=== PATIENT | male | born 1965 | race Caucasian/White ===

== ENCOUNTER 2016-10-24 09:38 | Inpatient (IN) | payer OTHER ==
[~2016-10-24] VITALS: Ht 172.7 cm; Wt 94.4 kg
--- NOTE | 2016-10-24 12:51 | DIAGNOSTIC IMAGING REPORT ---
PROCEDURE: XR ABD SERIES 2V ABD/1V CHEST INDICATION: VOMITING , initial encounter TECHNIQUE: AP supine and upright views of the abdomen with single view of the chest. COMPARISON: None. FINDINGS: CHEST: Lungs are clear. Normal cardiovascular structures. Bony thorax is unremarkable. Lower cervical spine surgical fusion. ABDOMEN: Paraspinal and right lower quadrant surgical clips. Decrease bowel gas. No soft-tissue masses or unusual calcifications. No evidence of free air. Right iliac exostosis. IMPRESSION: 1. Negative acute abdominal series.
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
--- NOTE | 2016-10-24 13:08 | ED NURSING NOTES ---
Clinical Report - Nurses [facility] [address] [place] [address] 10/24/2016 9:38 Patient: EUSEBIO SETHI TRIAGE Triage time 09:48 Oct 24 2016. Acuity: LEVEL 3. Chief Complaint: VOMITING. Alert. No acute distress. --09:53 Yessenia Dunn R.N. 09:48 10/24/16. BP: 188/98. HR: 99. RR: 22. O2 saturation: 100%. Temp: 97.6 F. Pain level now 06/15. --09:53 Yessenia Dunn R.N. Weight: 95.2 kg stated. Height/Length: 70 inches Per Patient. BMI: 30.1. --09:47 Yessenia Dunn R.N. Medications Nortriptyline HCl Oral 50 mg, at bedtime. Ondansetron HCl Oral, as needed. PriLOSEC Oral. Sertraline HCl Oral 75 mg, at bedtime. --09:52 Yessenia Dunn R.N. Medication/allergy information source: the patient. --09:53 Yessenia Dunn R.N. Allergies Penicillins. --09:52 Yessenia Dunn R.N. History Arrived by private vehicle. Historian: patient. Primary physician (Dr. Aquino, [facility], [place]). ( Vomiting off/on for 2 days, states he is dehydrated.). Onset. (2 days ago). He has had nausea, vomiting and abdominal pain. Last oral intake by patient was lunch yesterday. 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 PAST MEDICAL HX: Immunizations: up-to-date. Has not received seasonal influenza immunization. SOCIAL HX: Former smoker. History of drug use: marijuana. No alcohol use. FALL RISK ASSESSMENT: Fall risk assessment completed. No fall risk identified. NUTRITIONAL RISK ASSESSMENT: The nutritional risk assessment revealed no deficiencies. FUNCTIONAL ASSESSMENT: Functional assessment: no impairments noted. LEARNING NEEDS ASSESSMENT: The learning needs assessment revealed no barriers. SKIN INTEGRITY ASSESSMENT: Skin integrity risk assessment completed. No skin integrity risk identified. --09:53 Yessenia Dunn R.N. PROBLEMS: Substance Abuse. Leukocytosis. Dehydration. Abdominal Pain. Bowel Perforation. Vomiting. Hypertension. --09:52 Yessenia Dunn R.N. ADDITIONAL SURGERIES: Appendectomy. Bowel Surgery. Colostomy. Hand. --09:52 Yessenia Dunn R.N. Interventions ID band on patient. To room. --09:53 Yessenia Dunn R.N. NURSING PROGRESS NOTES ( Pt provided a letter from his [facility] [place] PCP office for pain management.). --09:54 Yessenia Dunn R.N. 10:10/24/2016 Site #1 started via IV in the right antecubital space with an 20g angiocath; one attempt. Blood drawn: rainbow set. Labeled in the presence of the patient and sent to the lab. Saline lock flushed with 10 mL saline. --10:07 Yessenia Dunn R.N. 10:10/24/2016 Started bag #1 1000 mL IV Fluids IV NS (Saline); at 1000 mL/hr over 1 hour(s) via site #1. Completed per protocol. --10:08 Yessenia Dunn R.N. 10:18 10/24/2016 Zofran (Ondansetron HCl) IVP 4 mg given over 2 minute(s) via site #1. IV patency established. IV site checked: no pain, redness, or swelling. IV flushed thoroughly pre- and post-medication administration. --10:18 Yessenia Dunn R.N. 10:10/24/2016 Haloperidol IV 3 mg (NOW) was refused by patient because of preference for a different route and "It doesn't work for me" ( aware.). Yessenia Dunn --10:20 Yessenia Dunn R.N. Care transferred and report given (NICOLA Cummings). --10:21 Yessenia Dunn R.N. 10:10/24/2016 Benadryl (DiphenhydrAMINE HCl) IVP 25 mg given over 1 minute(s) via site #1. Sedative warning given to the patient. IV patency established. IV site checked: no pain, redness, or swelling. IV flushed thoroughly pre- and post-medication administration. IVP given by RN. --10:29 Paris Briseno R.N. 10:24 10/24/2016 PROTONIX (Pantoprazole Sodium) IVP 40 mg given over 2 minute(s) via site #1. Allergies verified and confirmed 5 rights. IV patency established. IV site checked: no pain, redness, or swelling. IV flushed thoroughly pre- and post-medication administration. IVP given by RN. --10:29 Paris Briseno R.N. Critical value relayed to ED by melva. Critical value received by paris yap WBC: 28.0. Critical value read back. Verified lab result and patient ID. ED physician notifed of critical value. --10:36 Paris Briseno R.N. Patient returned from radiology by stretcher with tech. --10:37 Paris Briseno R.N. 11:00 10/24/2016 IV Fluids IV NS Bag Change: bag #1 infused. Total amount infused: 1000. STARTED bag #2 (1000 mL) at 500 mL/hr via IV pump. Confirmed 5 rights. IV patency established. IV site checked: no pain, redness, or swelling. IV flushed thoroughly. --11:24 Paris Briseno R.N. 11:15 10/24/2016 Dilaudid (HYDROmorphone HCl PF) IVP 1 mg given over 1 minute(s) via site #1. Allergies verified, confirmed 5 rights and sedative warning given to the patient. IV patency established. IV site checked: no pain, redness, or swelling. IV flushed thoroughly pre- and post-medication administration. IVP given by RN. --11:25 Paris Briseno R.N. 12:16 10/24/16. BP: 179/97. HR: 96. RR: 16. O2 saturation: 98% on room air. Pain level now: 12/13. --12:17 Paris Briseno R.N. 13:05 10/24/2016 IV Fluids IV NS Bag Change: bag #2 infused. Total amount infused: 1000. STARTED bag #3 (1000 mL) at 100 mL/hr via IV pump. Confirmed 5 rights. IV patency established. IV site checked: no pain, redness, or swelling. IV flushed thoroughly. --14:05 Paris Briseno R.N. 14:06 10/24/2016 Site #[address] upon admission; patent, no pain and no signs of infection or infiltration. Good blood return present (iv infusing). --14:06 Paris Briseno R.N. 14:06 10/24/2016 IV Fluids IV NS Continued: at the rate of 100 mL/hr. 900 mL remaining bag #3. IV patency established. IV site checked: no pain, redness, or swelling. IV flushed thoroughly. --14:06 Paris Briseno R.N. DISPOSITION / DISCHARGE Transported via stretcher by [facility] with IV. Report was given to a nurse via a phone call. Report included patient's care, treatment, medications, reviewed medication reconcilliation, and condition (including any recent changes or anticipated changes). (NICOLA Caruso). Patient's personal items include: shirt, pants, undergarments, socks and shoes; items were placed in belongings bag and transported with the patient. Collection of belongings was witnessed by 1 nurse. Medication list reviewed and validated. --14:09 Paris Briseno R.N. 14:08 10/24/16. BP: 175/69. HR: 98. RR: 18. O2 saturation: 97% on room air. Temp: deferred. Pain level now: 11/15. Additional comments: Patient drowsey, and sleeping. . 12:16 10/24/16. BP: 179/97. HR: 96. RR: 16. O2 saturation: 98% on room air. Pain level now: 12/13. 11:20 10/24/16. BP: 169/89. HR: 79. RR: 16. O2 saturation: 98%. Pain level now: 03/15. 09:48 10/24/16. BP: 188/98. HR: 99. RR: 22. O2 saturation: 100%. Temp: 97.6 F. Pain level now 06/15. --14:09 Paris Briseno R.N. Locked/Released at 10/24/2016 17:51 by Paris Briseno R.N.
--- NOTE | 2016-10-24 13:08 | ED NURSING NOTES ---
Clinical Report - Nurses [facility] [address] [place] [address] 10/24/2016 9:38 Patient: EUSEBIO SETHI TRIAGE Triage time 09:48 Oct 24 2016. Acuity: LEVEL 3. Chief Complaint: VOMITING. Alert. No acute distress. --09:53 Yessenia Dunn R.N. 09:48 10/24/16. BP: 188/98. HR: 99. RR: 22. O2 saturation: 100%. Temp: 97.6 F. Pain level now 06/15. --09:53 Yessenia Dunn R.N. Weight: 95.2 kg stated. Height/Length: 70 inches Per Patient. BMI: 30.1. --09:47 Yessenia Dunn R.N. Medications Nortriptyline HCl Oral 50 mg, at bedtime. Ondansetron HCl Oral, as needed. PriLOSEC Oral. Sertraline HCl Oral 75 mg, at bedtime. --09:52 Yessenia Dunn R.N. Medication/allergy information source: the patient. --09:53 Yessenia Dunn R.N. Allergies Penicillins. --09:52 Yessenia Dunn R.N. History Arrived by private vehicle. Historian: patient. Primary physician (Dr. Aquino, [facility]). ( Vomiting off/on for 2 days, states he is dehydrated.). Onset. (2 days ago). He has had nausea, vomiting and abdominal pain. Last oral intake by patient was lunch yesterday. 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 PAST MEDICAL HX: Immunizations: up-to-date. Has not received seasonal influenza immunization. SOCIAL HX: Former smoker. History of drug use: marijuana. No alcohol use. FALL RISK ASSESSMENT: Fall risk assessment completed. No fall risk identified. NUTRITIONAL RISK ASSESSMENT: The nutritional risk assessment revealed no deficiencies. FUNCTIONAL ASSESSMENT: Functional assessment: no impairments noted. LEARNING NEEDS ASSESSMENT: The learning needs assessment revealed no barriers. SKIN INTEGRITY ASSESSMENT: Skin integrity risk assessment completed. No skin integrity risk identified. --09:53 Yessenia Dunn R.N. PROBLEMS: Substance Abuse. Leukocytosis. Dehydration. Abdominal Pain. Bowel Perforation. Vomiting. Hypertension. --09:52 Yessenia Dunn R.N. ADDITIONAL SURGERIES: Appendectomy. Bowel Surgery. Colostomy. Hand. --09:52 Yessenia Dunn R.N. Interventions ID band on patient. To room. --09:53 Yessenia Dunn R.N. NURSING PROGRESS NOTES ( Pt provided a letter from his [facility] PCP office for pain management.). --09:54 Yessenia Dunn R.N. 10:10/24/2016 Site #1 started via IV in the right antecubital space with an 20g angiocath; one attempt. Blood drawn: rainbow set. Labeled in the presence of the patient and sent to the lab. Saline lock flushed with 10 mL saline. --10:07 Yessenia Dunn R.N. 10:10/24/2016 Started bag #1 1000 mL IV Fluids IV NS (Saline); at 1000 mL/hr over 1 hour(s) via site #1. Completed per protocol. --10:08 Yessenia Dunn R.N. 10:18 10/24/2016 Zofran (Ondansetron HCl) IVP 4 mg given over 2 minute(s) via site #1. IV patency established. IV site checked: no pain, redness, or swelling. IV flushed thoroughly pre- and post-medication administration. --10:18 Yessenia Dunn R.N. 10:10/24/2016 Haloperidol IV 3 mg (NOW) was refused by patient because of preference for a different route and "It doesn't work for me" ( aware.). Yessenia Dunn --10:20 Yessenia Dunn R.N. Care transferred and report given (NICOLA Cummings). --10:21 Yessenia Dunn R.N. 10:10/24/2016 Benadryl (DiphenhydrAMINE HCl) IVP 25 mg given over 1 minute(s) via site #1. Sedative warning given to the patient. IV patency established. IV site checked: no pain, redness, or swelling. IV flushed thoroughly pre- and post-medication administration. IVP given by RN. --10:29 Paris Briseno R.N. 10:24 10/24/2016 PROTONIX (Pantoprazole Sodium) IVP 40 mg given over 2 minute(s) via site #1. Allergies verified and confirmed 5 rights. IV patency established. IV site checked: no pain, redness, or swelling. IV flushed thoroughly pre- and post-medication administration. IVP given by RN. --10:29 Paris Briseno R.N. Critical value relayed to ED by melva. Critical value received by paris yap WBC: 28.0. Critical value read back. Verified lab result and patient ID. ED physician notifed of critical value. --10:36 Paris Briseno R.N. Patient returned from radiology by stretcher with tech. --10:37 Paris Briseno R.N. 11:00 10/24/2016 IV Fluids IV NS Bag Change: bag #1 infused. Total amount infused: 1000. STARTED bag #2 (1000 mL) at 500 mL/hr via IV pump. Confirmed 5 rights. IV patency established. IV site checked: no pain, redness, or swelling. IV flushed thoroughly. --11:24 Paris Briseno R.N. 11:15 10/24/2016 Dilaudid (HYDROmorphone HCl PF) IVP 1 mg given over 1 minute(s) via site #1. Allergies verified, confirmed 5 rights and sedative warning given to the patient. IV patency established. IV site checked: no pain, redness, or swelling. IV flushed thoroughly pre- and post-medication administration. IVP given by RN. --11:25 Paris Briseno R.N. 12:16 10/24/16. BP: 179/97. HR: 96. RR: 16. O2 saturation: 98% on room air. Pain level now: 12/13. --12:17 Paris Briseno R.N. 13:05 10/24/2016 IV Fluids IV NS Bag Change: bag #2 infused. Total amount infused: 1000. STARTED bag #3 (1000 mL) at 100 mL/hr via IV pump. Confirmed 5 rights. IV patency established. IV site checked: no pain, redness, or swelling. IV flushed thoroughly. --14:05 Paris Briseno R.N. 14:06 10/24/2016 Site #[address] upon admission; patent, no pain and no signs of infection or infiltration. Good blood return present (iv infusing). --14:06 Paris Briseno R.N. 14:06 10/24/2016 IV Fluids IV NS Continued: at the rate of 100 mL/hr. 900 mL remaining bag #3. IV patency established. IV site checked: no pain, redness, or swelling. IV flushed thoroughly. --14:06 Paris Briseno R.N. DISPOSITION / DISCHARGE Transported via stretcher by [facility] with IV. Report was given to a nurse via a phone call. Report included patient's care, treatment, medications, reviewed medication reconcilliation, and condition (including any recent changes or anticipated changes). (NICOLA Caruso). Patient's personal items include: shirt, pants, undergarments, socks and shoes; items were placed in belongings bag and transported with the patient. Collection of belongings was witnessed by 1 nurse. Medication list reviewed and validated. --14:09 Paris Briseno R.N. 14:08 10/24/16. BP: 175/69. HR: 98. RR: 18. O2 saturation: 97% on room air. Temp: deferred. Pain level now: 11/15. Additional comments: Patient drowsey, and sleeping. . 12:16 10/24/16. BP: 179/97. HR: 96. RR: 16. O2 saturation: 98% on room air. Pain level now: 12/13. 11:20 10/24/16. BP: 169/89. HR: 79. RR: 16. O2 saturation: 98%. Pain level now: 03/15. 09:48 10/24/16. BP: 188/98. HR: 99. RR: 22. O2 saturation: 100%. Temp: 97.6 F. Pain level now 06/15. --14:09 Paris Briseno R.N. Locked/Released at 10/24/2016 17:51 by Paris Briseno R.N.
--- NOTE | 2016-10-24 13:08 | ED ORDER SUMMARY ---
..... Patient: EUSEBIO SETHI OrderSheet [facility] VisitID: [id number] [address] [place] [address] 51y, M Registration Date/Time: 10/24/2016 ORDER SHEET Weight: 95.2 kg (stated) Allergies: Penicillins GENERAL ORDERS: UA-Culture if indicated Urgent ([facility] (Ack 10:18 LTapper) Amylase Urgent (10/24/2016 PHson ) (Ack 10:18 LTapper) (10:19 SBalde R.N.) Lipase Urgent (10/24/2016 ) (Ack 10:18 LTapper) (10:19 SBalde R.N.) PT with INR Urgent (10/24/2016 ) (Ack 10:18 LTapper) (10:19 SBalde R.N.) Cardiac Panel Stat (10/24/2016) (Ack 10:18 LTapper) (10:19 SBalde R.N.) Urine Drug Screen Urgent (10/24/2016 ) (Ack 10:18 LTapper) PCT (Procalcitonin) Urgent (10/24/2016 ) (Ack 10:18 LTapper) (10:19 SBalde R.N.) NPO (10/24/2016 ) (10:28 SRoberts R.N.) Abd Series 2V Abd/1V Chest (prior abdominal surgeries; vomiting) [facility]10:03 [facility] (Ack 10:18 LTapper) (10:28 SRoberts R.N.) MEDICATION ORDERS: IV FLUIDS: IV NS : initial bolus 1000 mL (1000 mL/hr), then 500 mL/hr for X2 (NOW) (:[facility] (10:08 SBalde R.N.) Zofran IV 4 mg (NOW) (:10/24/2016 [facility]) (10:18 Renetta R.N.) Benadryl IV 25 mg (NOW) (09:54 10/24/2016 [facility]) (10:29 oJse Francisco R.N.) Haloperidol IV 3 mg (NOW) (09:54 10/24/2016 [facility]) (10:20 Renetta R.N.) Protonix IVP 40mg 40 mg (Mix in NS 10ml over 2min) (10:00 10/24/2016 [facility]) (10:29 Jose Francisco R.N.) Dilaudid IV 1 mg (HIGH ALERT MEDICATION, NOW) (11:14 10/24/2016 [facility]) (11:25 Jose Francisco R.N.) ORDER SHEET NOTES: [Electronically signed by Zoila Briseno R.N. (17:51 10/24/2016)] [Electronically signed by Ramirez Ortiz DO (21:38 10/24/2016)] [Electronically locked/signed by Zoila Briseno R.N. (17:51 10/24/2016)]
--- NOTE | 2016-10-24 13:08 | ED ORDER SUMMARY ---
..... Patient: EUSEBIO SETHI OrderSheet [facility] VisitID: [id number] [address] [place] [address] 51y, M Registration Date/Time: 10/24/2016 ORDER SHEET Weight: 95.2 kg (stated) Allergies: Penicillins GENERAL ORDERS: UA-Culture if indicated Urgent ([facility]/24/2016 [facility] (Ack 10:18 LTapper) Amylase Urgent (10/24/2016 PHson ) (Ack 10:18 LTapper) (10:19 SBalde R.N.) Lipase Urgent (10/24/2016 ) (Ack 10:18 LTapper) (10:19 SBalde R.N.) PT with INR Urgent (10/24/2016 ) (Ack 10:18 LTapper) (10:19 SBalde R.N.) Cardiac Panel Stat (10/24/2016) (Ack 10:18 LTapper) (10:19 SBalde R.N.) Urine Drug Screen Urgent (10/24/2016 ) (Ack 10:18 LTapper) PCT (Procalcitonin) Urgent (10/24/2016 ) (Ack 10:18 LTapper) (10:19 SBalde R.N.) NPO (10/24/2016 ) (10:28 SRoberts R.N.) Abd Series 2V Abd/1V Chest (prior abdominal surgeries; vomiting) Urgent (10:03 [facility] (Ack 10:18 LTapper) (10:28 SRoberts R.N.) MEDICATION ORDERS: IV FLUIDS: IV NS : initial bolus 1000 mL (1000 mL/hr), then 500 mL/hr for X2 (NOW) (:10[facility]24/2016 [facility]) (10:08 SBalde R.N.) Zofran IV 4 mg (NOW) (:10/24/2016 [facility]) (10:18 Renetta R.N.) Benadryl IV 25 mg (NOW) (09:54 10/24/2016 [facility]) (10:29 Jose Francisco R.N.) Haloperidol IV 3 mg (NOW) (09:54 10/24/2016 [facility]) (10:20 Renetta R.N.) Protonix IVP 40mg 40 mg (Mix in NS 10ml over 2min) (10:00 10/24/2016 [facility]) (10:29 Jose Francisco R.N.) Dilaudid IV 1 mg (HIGH ALERT MEDICATION, NOW) (11:14 10/24/2016 [facility]) (11:25 Jose Francisco R.N.) ORDER SHEET NOTES: [Electronically signed by Zoila Briseno R.N. (17:51 10/24/2016)] [Electronically signed by Ramirez Ortiz DO (21:38 10/24/2016)] [Electronically locked/signed by Zoila Briseno R.N. (17:51 10/24/2016)]
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
[2016-10-24] MEDS ORDERED: NORTRIPTYLINE H25 MG PO (13:59)
[2016-10-24] MEDS ORDERED: ZOFRAN ODT4 MG PO (13:59)
[2016-10-24] MEDS ORDERED: PRILOSEC10 MG PO (14:00)
[2016-10-24] MEDS ORDERED: ZOLOFT50 MG PO (14:01)
[2016-10-24 14:26] VITALS: BP 179/104
[2016-10-24 18:06] VITALS: BP 180/110
[2016-10-24 20:30] VITALS: BP 179/113
--- NOTE | 2016-10-24 21:39 | ED MAR SUMMARY ---
..... Medication Administration Record [facility] [address] [place] [address] Patient: EUSEBIO SETHI Visit ID: [id number] 51y, M Weight: 95.2 kg Height/Length: 70 in BMI: 30.1 ALLERGIES: Penicillins Start 10:08 10/24/2016 Yessenia Dunn R.N., Continued Upon Disposition 14:06 10/24/2016 Zoila Briseno R.N. Medication Administered: IV NS (SALINE), Dose: IV Fluids over 1 hour(s), Rate: 1000 mL/hr, Dispensed: 1000 mL bag, Site: #1 right AC. Medication Ordered: IV NS : initial bolus 1000 mL (1000 mL/hr), then 500 mL/hr for X2 (NOW). Given 10:18 10/24/2016 Yessenia Dunn R.N. Medication Administered: ZOFRAN [IVP] (ONDANSETRON HCL), Dose: 4 mg IVP over 2 minute(s), Site: #1 right AC. Medication Ordered: Zofran IV 4 mg (NOW). Given 10:10/24/2016 Zoila Briseno R.N. Medication Administered: BENADRYL [IVP] (DIPHENHYDRAMINE HCL), Dose: 25 mg IVP over 1 minute(s), Site: #1 right AC. Medication Ordered: Benadryl IV 25 mg (NOW). Given 10:24 10/24/2016 Zoila Briseno R.N. Medication Administered: PROTONIX [IVP] (PANTOPRAZOLE SODIUM), Dose: 40 mg IVP over 2 minute(s), Site: #1 right AC. Medication Ordered: Protonix IVP 40mg 40 mg (Mix in NS 10ml over 2min). Given 11:15 10/24/2016 Zoila Briseno R.N. Medication Administered: DILAUDID [IVP] (HYDROMORPHONE HCL PF), Dose: 1 mg IVP over 1 minute(s), Site: #1 right AC. Medication Ordered: Dilaudid IV 1 mg (HIGH ALERT MEDICATION, NOW).
--- NOTE | 2016-10-24 21:39 | ED MED RECONCILIATION SUMMARY ---
Patient: EUSEBIO SETHI Medication Reconciliation Report [facility] VisitID: [id number] [address] [place] [address] 51y, M Registration Date/Time: 10/24/2016 Weight: 95.2 kg Height/Length: 70 in. BMI: 30.1 ALLERGIES: Penicillins The patient's Home Medications are listed below: THE FOLLOWING MEDICATIONS NEED TO BE RECONCILED: Nortriptyline HCl Oral 50 mg, at bedtime Ondansetron HCl Oral PriLOSEC Oral Sertraline HCl Oral 75 mg, at bedtime The source(s) of the original Home Medication information: patient The following Medications were given to the patient in the Emergency Department: IV NS IV Fluids bolus 0, then 1000 mL/hr, administered: 10/24/2016 10:08:00 AM Zofran [IVP] IVP 4 mg, administered: 10/24/2016 10:18:00 AM Benadryl [IVP] IVP 25 mg, administered: 10/24/2016 10:20:00 AM PROTONIX [IVP] IVP 40 mg, administered: 10/24/2016 10:24:00 AM Dilaudid [IVP] IVP 1 mg, administered: 10/24/2016 11:15:00 AM The following Medications were prescribed to the patient: None.
--- NOTE | 2016-10-24 21:39 | ED DISCHARGE INSTRUCTIONS ---
Patient: EUSEBIO SETHI General Instructions [facility] VisitID: [id number] [address] [place] [address] 51y, M Registration Date/Time: 10/24/2016 Vomiting with nausea, dehydration and volume depletion. Acute generalized abdominal pain of undetermined cause. New onset, moderately well controlled type 2 diabetes with hyperglycemia. No coma. Severe leukocytosis. No lymphocytosis. Cyclic Vomiting Syndrome / Canabinoid Hyperemesis Syndrome. (Electronically signed by Ramirez Ortiz DO 10/24/2016 21:38)
--- NOTE | 2016-10-24 21:39 | ED MAR SUMMARY ---
..... Medication Administration Record [facility] [address] [place] [address] Patient: EUSEBIO SETHI Visit ID: [id number] 51y, M Weight: 95.2 kg Height/Length: 70 in BMI: 30.1 ALLERGIES: Penicillins Start 10:08 10/24/2016 Yessenia Dunn R.N., Continued Upon Disposition 14:06 10/24/2016 Zoila Briseno R.N. Medication Administered: IV NS (SALINE), Dose: IV Fluids over 1 hour(s), Rate: 1000 mL/hr, Dispensed: 1000 mL bag, Site: #1 right AC. Medication Ordered: IV NS : initial bolus 1000 mL (1000 mL/hr), then 500 mL/hr for X2 (NOW). Given 10:18 10/24/2016 Yessenia Dunn R.N. Medication Administered: ZOFRAN [IVP] (ONDANSETRON HCL), Dose: 4 mg IVP over 2 minute(s), Site: #1 right AC. Medication Ordered: Zofran IV 4 mg (NOW). Given 10:10/24/2016 Zoila Briseno R.N. Medication Administered: BENADRYL [IVP] (DIPHENHYDRAMINE HCL), Dose: 25 mg IVP over 1 minute(s), Site: #1 right AC. Medication Ordered: Benadryl IV 25 mg (NOW). Given 10:24 10/24/2016 Zoila Briseno R.N. Medication Administered: PROTONIX [IVP] (PANTOPRAZOLE SODIUM), Dose: 40 mg IVP over 2 minute(s), Site: #1 right AC. Medication Ordered: Protonix IVP 40mg 40 mg (Mix in NS 10ml over 2min). Given 11:15 10/24/2016 Zoila Briseno R.N. Medication Administered: DILAUDID [IVP] (HYDROMORPHONE HCL PF), Dose: 1 mg IVP over 1 minute(s), Site: #1 right AC. Medication Ordered: Dilaudid IV 1 mg (HIGH ALERT MEDICATION, NOW).
--- NOTE | 2016-10-24 21:39 | ED MED RECONCILIATION SUMMARY ---
Patient: EUSEBIO SETHI Medication Reconciliation Report [facility] VisitID: [id number] [address] [place] [address] 51y, M Registration Date/Time: 10/24/2016 Weight: 95.2 kg Height/Length: 70 in. BMI: 30.1 ALLERGIES: Penicillins The patient's Home Medications are listed below: THE FOLLOWING MEDICATIONS NEED TO BE RECONCILED: Nortriptyline HCl Oral 50 mg, at bedtime Ondansetron HCl Oral PriLOSEC Oral Sertraline HCl Oral 75 mg, at bedtime The source(s) of the original Home Medication information: patient The following Medications were given to the patient in the Emergency Department: IV NS IV Fluids bolus 0, then 1000 mL/hr, administered: 10/24/2016 10:08:00 AM Zofran [IVP] IVP 4 mg, administered: 10/24/2016 10:18:00 AM Benadryl [IVP] IVP 25 mg, administered: 10/24/2016 10:20:00 AM PROTONIX [IVP] IVP 40 mg, administered: 10/24/2016 10:24:00 AM Dilaudid [IVP] IVP 1 mg, administered: 10/24/2016 11:15:00 AM The following Medications were prescribed to the patient: None.
--- NOTE | 2016-10-24 21:39 | ED DISCHARGE INSTRUCTIONS ---
Patient: EUSEBIO SETHI General Instructions [facility] VisitID: [id number] [address] [place] [address] 51y, M Registration Date/Time: 10/24/2016 Vomiting with nausea, dehydration and volume depletion. Acute generalized abdominal pain of undetermined cause. New onset, moderately well controlled type 2 diabetes with hyperglycemia. No coma. Severe leukocytosis. No lymphocytosis. Cyclic Vomiting Syndrome / Canabinoid Hyperemesis Syndrome. (Electronically signed by Ramirez Ortiz DO 10/24/2016 21:38)
[2016-10-24 22:16] VITALS: BP 147/107
[2016-10-25] VITALS (23 sets, daily range): BP systolic 102–185; BP diastolic 54–108
--- NOTE | 2016-10-25 07:15 | Progress Note ---
Subjective General Brief hx: VOMITING. This started about 2 days ago and is still present. It was gradual in onset and has been waxing/waning. No recent travel. He has had nausea and mild, crampy, intermittent abdominal pain. The pain is described as generalized and located in the upper abdomen. He has had vomiting. The vomiting has occurred numerous times. It has been similar to previous episodes. Patient with intractible vomiting and still with issues in spite of multiple meds and also with NGT. Has been feeling a little better this am after NGT. No acute issues states in past dilaudid and anti vomiting meds helped lots. Physical Exam Vital Signs / I&Os Vital Signs Date Time Temp Pulse Resp B/P Pulse O2 O2 Flow FiO2 Ox Delivery Rate 10/25 0545 107 17 177/96 98 Nasal 2.0 Cannula 10/25 0516 115 172/94 10/25 0404 99 14 134/82 100 Nasal 2.0 Cannula 10/25 0252 116/74 10/25 0232 138 102/60 99 Nasal 2.0 Cannula 10/25 0229 2.0 10/25 0226 123 99 Nasal 2.0 Cannula 10/25 0218 108 20 185/106 100 Room Air 10/25 0151 98.1 101 18 180/108 99 Room Air 10/24 2216 98.1 112 20 147/107 98 Room Air 10/24 2032 Room Air 10/24 2030 98.1 106 20 179/113 100 Room Air 10/24 1806 98.1 107 20 180/110 100 Room Air 10/24 1454 Room Air 10/24 1426 97.9 95 20 179/104 97 Room Air I&O 10/25 0000 10/24 1600 10/24 0800 Intake Total 367 Output Total 800 Balance -433 General Appearance Alert, Cooperative HEENT Normal exam Lungs Clear to auscultation, Normal air movement Cardiovascular Regular rate and rhythm Abdomen Soft, No tenderness Extremities No edema LAB Results Laboratory Tests 10/25 10/25 10/24 10/24 10/24 0515 0225 1000 1000 0954 Chemistry Plasma Sodium (136 - 145 mmol/L) 143 138 Plasma Potassium (3.5 - 5.1 mmol/L) 3.9 4.2 Plasma Chloride (98 - 107 mmol/L) 106 100 CO2 (Enzymatic) (21 - 32 mmol/L) 22 19 BUN (7 - 18 mg/dL) 23 38 Creatinine (0.6 - 1.3 mg/dL) 1.2 2.1 Est GFR ( Amer) (mL/min) >60 43.46 Est GFR (Non-Af Amer) (mL/min) >60 35.86 Glucose (70 - 110 mg/dL) 130 242 Hemoglobin A1c % (4.5 - 6.2 %) 5.4 Plasma Calcium (8.5 - 10.1 mg/dL) 9.1 10.7 Plasma Magnesium (1.8 - 2.4 mg/dL) 2.1 2.0 Total Bilirubin (0.0 - 1.0 mg/dL) 0.5 AST (15 - 37 U/L) 17 ALT (12 - 78 U/L) 37 Alkaline Phosphatase (46 - 116 U/L) 109 Creatine Kinase (24 - 260 U/L) 135 Troponin (0.00 - 1.5 ng/mL) <0.05 <0.05 Total Protein (6.4 - 8.2 g/dL) 9.2 Albumin (3.3 - 5.0 g/dL) 4.9 Amylase (25 - 115 U/L) 40 Lipase (73 - 393 U/L) 137 Procalcitonin (0 - 0.5 ng/mL) <0.5 TSH 3rd Generation (0.34 - 3.74 uIU/mL) 1.274 Coagulation INR (0.8 - 1.2) 1.2 Hematology WBC (4.5 - 11.5 K/uL) 23.5 26.0 RBC (4.50 - 5.90 M/uL) 4.94 5.50 Hgb (13.5 - 17.5 gm/dL) 14.6 15.0 16.3 Hct (41.0 - 53.0 %) 44.4 44.1 48.8 MCV (80 - 100 fL) 90 89 MCH (26 - 34 pg) 30 30 RDW (11.6 - 14.8 %) 13.7 13.5 Neut % (Auto) (50 - 75 %) 82.1 89 Lymph % (Auto) (25 - 40 %) 9.3 3 [place] % (Auto) (3 - 14 %) 8.5 6 Eos % (Auto) (0 - 4 %) 0 0 Baso % (Auto) (0 - 2 %) 0.1 0 Band Neutrophils % (0 - 8 %) 2 Metamyelocytes % (0 - 1 %) 0 Myelocytes (0 - 1 %) 0 Other Cell Type 0 Plt Count, EDTA (150 - 400 K/uL) 277 297 PUBS MCHC (31 - 37 g/dL) 33 33 10/24 0954 Chemistry Amylase Cancelled Lipase Cancelled Toxicology Acetone, Qual (NEGATIVE) NEGATIVE Assessment and Plan Problem List 1. Dehydration Plan Has been doing a little better on IVF 2. Abdominal pain Plan Has been feeling better now. 3. Intractable vomiting with nausea Plan Is feeling better post NGT. ? scopolamine patch and or haldol in future. Keep ngt to clamping in am.
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
--- NOTE | 2016-10-25 07:36 | DIAGNOSTIC IMAGING REPORT ---
PROCEDURE: CT ABDOMEN/PELVIS W/O CONTRAST INDICATION: NAUSEA/VOMITING, WBC 23.5. Initial encounter. TECHNIQUE: Noncontrast axial images were obtained of the entire abdomen and pelvis with sagittal and coronal reformations. COMPARISON: CT abdomen/pelvis 12/21/2015 FINDINGS: ABDOMEN: Lung base are clear. Heart size is normal. NG tube in place in the stomach. Liver, gallbladder, pancreas, spleen, kidneys and adrenal glands are normal. Minor atherosclerosis. Right abdominal of small bowel anastomoses. No evidence of small bowel obstruction. PELVIS: Distended bladder. Sigmoid surgical changes. No pelvic mass, inflammatory changes or free fluid. Mild degenerative changes of the spine. Loss of lordosis suggestive of muscular spasm. IMPRESSION: 1. NG tube in the stomach 2. Small and large bowel anastomoses without evidence of obstruction 3. Results discussed with Dr. Noyola All CT scans at this facility use dose modulation, iterative reconstruction, and/or weight-based dosing when appropriate to reduce radiation dose to as low as reasonably achievable.
[2016-10-26 02:25] VITALS: BP 148/83
[2016-10-26 07:08] VITALS: BP 138/80
[2016-10-26 10:30] VITALS: BP 149/88
--- NOTE | 2016-10-26 12:23 | Progress Note ---
Subjective General Note Date: October 26, 2016 Admission Date: October 24, 2016 Hospital Day: 3 PCP: Dylan Aquino M.D. Status: Inpatient Advanced Directive: FULL CODE Room: 204-A Brief History: The patient is a 51-year-old white male with a significant past make a history of recurrent small bowel obstruction, cyclic vomiting, gastroesophageal reflux, generalized anxiety disorder, illicit drug use-marijuana, who presented [facility] emergency department on the day of admission secondary to complaints of nausea and vomiting. ER evaluation was consistent with cyclic vomiting versus marijuana induced hyperemesis. Secondary to the above, the patient was admitted by Dr. Evan Velasco for further evaluation treatment. For other history present illness, past medical history, family history, social history, review of systems, and admission physical examination please see the patient's history and physical examination and ER visit note in the patient's medical record. Subjective: The patient states he is doing much better today. No recent nausea or vomiting. NG tube remains in place Patient requests: None Medications and Allergies Medications Current Medications Sig/Zoila Start time Last Medication Dose Route Stop Time Status Admin Sertraline HCl 100 MG QHS 10/25 2100 AC 10/25 PO 2114 Insulin Human Lispro See Dose Q6HR 10/25 1200 AC Insts (1) SC Pantoprazole Sodium 40 MG DAILY@0600 10/25 0600 AC 10/26 IV 0543 Al Hydrox/Mg Hydrox/ 15 ML Q1H PRN 10/25 0315 AC Simethicone PO Atropine Sulfate 0.5 MG Q3MIN PRN 10/25 0315 AC IV Lidocaine HCl See Dose Q5MIN PRN 10/25 0315 AC Insts (2) IV Magnesium Hydroxide 10 ML QAM PRN 10/25 0315 AC PO Morphine Sulfate 2 MG Q3MIN PRN 10/25 0315 AC 10/25 IV 0630 Nitroglycerin See Dose Q5MIN PRN 10/25 0315 AC 10/25 Insts (3) SL 0227 Hydralazine HCl 10 MG Q6H PRN 10/25 0300 AC IV Promethazine HCl 25 MG Q6H PRN 10/24 2115 AC 10/25 IV 0244 Lisinopril 10 MG DAILY 10/24 1630 AC 10/26 PO 0945 Morphine Sulfate See Dose Q2H PRN 10/24 1600 AC 10/25 Insts (4) IV 0531 Sodium Chloride 1,000 ML ASDIRECTED 10/24 1600 AC 10/26 IV 0810 Dose Instructions: (1)Insulin Human Lispro: LOW DOSE: ACCUCHECK AND SLIDING SCALE >>To change sliding scale DISCONTINUE this order and enter a NEW order. Thanks< (2)Lidocaine HCl: 1.5 MG/KG (3)Nitroglycerin: 1 TABLET (4)Morphine Sulfate: 1 - 2 MG Allergies Coded Allergies: Penicillins (10/24/16) Physical Exam Vital Signs / I&Os Vital Signs Date Time Temp Pulse Resp B/P Pulse O2 O2 Flow FiO2 Ox Delivery Rate 10/26 1030 98.8 86 18 149/88 98 Room Air 10/26 0708 98.6 90 18 138/80 96 Room Air 10/26 0225 98.1 85 17 148/83 97 Room Air 10/25 2330 97 17 144/84 97 Room Air 10/25 2244 97.9 86 13 130/77 97 Nasal Cannula 10/25 2059 100 18 138/70 97 Nasal 0.0 Cannula 10/25 2000 107 14 126/79 98 Nasal 0.0 Cannula 10/25 1910 89 16 122/62 96 Nasal 0.0 Cannula 10/25 1752 98.1 100 123/73 99 Nasal 0.0 Cannula 10/25 1700 93 15 125/73 98 Nasal 0.0 Cannula 10/25 1600 86 15 146/72 97 Nasal 0.0 Cannula 10/25 1507 86 15 132/79 94 Nasal 0.0 Cannula 10/25 1425 98.8 100 14 121/80 97 Nasal 0.0 Cannula 10/25 1300 99.3 104 17 122/57 95 Nasal 0.0 Cannula I&O 10/26 0000 10/25 1600 10/25 0800 Intake Total 1304 0 1639 Output Total 575 1060 1460 Balance 729 -1060 179 General Appearance Alert, Oriented X3, Cooperative, No acute distress HEENT NG tube in place Lungs Clear to auscultation, Normal air movement Cardiovascular Regular rate and rhythm, Normal S1 and S2 Abdomen Normal bowel sounds, Soft, No tenderness Extremities No cyanosis, No clubbing, No edema Neurological Cranial nerves intact, No lateralizing signs Psych/Mental Status Mental status normal, Mood normal LAB Results Laboratory Tests 10/26 10/26 10/25 10/25 0315 0315 2100 1520 Chemistry Plasma Sodium (136 - 145 mmol/L) 145 Plasma Potassium (3.5 - 5.1 mmol/L) 3.6 Plasma Chloride (98 - 107 mmol/L) 108 CO2 (Enzymatic) (21 - 32 mmol/L) 27 BUN (7 - 18 mg/dL) 23 Creatinine (0.6 - 1.3 mg/dL) 1.1 Est GFR ( Amer) (mL/min) >60 Est GFR (Non-Af Amer) (mL/min) >60 Glucose (70 - 110 mg/dL) 101 Plasma Calcium (8.5 - 10.1 mg/dL) 8.7 Creatine Kinase (24 - 260 U/L) 122 149 176 Troponin (0.00 - 1.5 ng/mL) <0.05 <0.05 <0.05 Hematology WBC (4.5 - 11.5 K/uL) 14.1 RBC (4.50 - 5.90 M/uL) 4.68 Hgb (13.5 - 17.5 gm/dL) 13.8 Hct (41.0 - 53.0 %) 42.0 MCV (80 - 100 fL) 90 MCH (26 - 34 pg) 29 RDW (11.6 - 14.8 %) 14.2 Neut % (Auto) (50 - 75 %) 70.2 Lymph % (Auto) (25 - 40 %) 19.3 Webster % (Auto) (3 - 14 %) 9.9 Eos % (Auto) (0 - 4 %) 0.3 Baso % (Auto) (0 - 2 %) 0.3 Plt Count, EDTA (150 - 400 K/uL) 236 PUBS MCHC (31 - 37 g/dL) 33 Assessment and Plan Problem List 1. Intractable vomiting with nausea Plan -Resolved -DC NG tube -Begin clear liquid diet -Probable discharge in a.m. if stable -Recommended no further use of marijuana. 2. Dehydration Plan -Much improved -BUN/creatinine 23/1.1 -Continue IV fluid therapy Current status: Fair, improved Anticipated discharge date: Anticipated discharge in a.m. Anticipated discharge placement: Home Patient care time: Time spent in chart review, patient interview, physical exam, CPOE, and care documentation: 25 minutes Visit to patient today: 1 Complexity of care: Moderate E&M Codes Rounding: Inpt-Moderate/[id number]
[2016-10-26 15:32] VITALS: BP 11/93; BP 141/93
--- NOTE | 2016-10-26 18:42 | Discharge Summary ---
Discharge Summary Report Admit Date 10/24/16 Discharge Date 10/26/16 Admission Diagnosis 1. Intractable nausea and vomiting 2. Illicit drug use-marijuana Discharge Diagnosis 1. Intractable nausea and vomiting 2. Illicit drug use-marijuana Brief History The patient is a 51-year-old white male with a significant past make a history of recurrent small bowel obstruction, cyclic vomiting, gastroesophageal reflux, generalized anxiety disorder, illicit drug use-marijuana, who presented [facility] [place] emergency department on the day of admission secondary to complaints of nausea and vomiting. ER evaluation was consistent with cyclic vomiting versus marijuana induced hyperemesis. Secondary to the above, the patient was admitted by Dr. Evan Velasco for further evaluation treatment. For other history present illness, past medical history, family history, social history, review of systems, and admission physical examination please see the patient's history and physical examination and ER visit note in the patient's medical record. Hospital Course The following problems and their management were noted during the patient's hospitalization: 1. Intractable nausea and vomiting The patientPresented with findings of abdominal pain with intractable nausea and vomiting. This resolved quickly with NG tube placement, antiemetics, and IV fluid hydration. Abdominal films/CT scan were unremarkable for physical obstruction. The patient was taking well orally at the time of discharge without further nausea or vomiting. He was discharged home to follow up PCP. 2. Illicit drug use-marijuana The patient has a history of marijuana usage on a daily basis. He was cautioned that this could cause drug-induced hyperemesis. Recommended not using marijuana with follow-up with PCP. Lab/Imaging Laboratory Tests 10/26 10/26 10/25 0315 0315 2100 Chemistry Plasma Sodium (136 - 145 mmol/L) 145 Plasma Potassium (3.5 - 5.1 mmol/L) 3.6 Plasma Chloride (98 - 107 mmol/L) 108 CO2 (Enzymatic) (21 - 32 mmol/L) 27 BUN (7 - 18 mg/dL) 23 Creatinine (0.6 - 1.3 mg/dL) 1.1 Est GFR ( Amer) (mL/min) >60 Est GFR (Non-Af Amer) (mL/min) >60 Glucose (70 - 110 mg/dL) 101 Plasma Calcium (8.5 - 10.1 mg/dL) 8.7 Creatine Kinase (24 - 260 U/L) 122 149 Troponin (0.00 - 1.5 ng/mL) <0.05 <0.05 Hematology WBC (4.5 - 11.5 K/uL) 14.1 RBC (4.50 - 5.90 M/uL) 4.68 Hgb (13.5 - 17.5 gm/dL) 13.8 Hct (41.0 - 53.0 %) 42.0 MCV (80 - 100 fL) 90 MCH (26 - 34 pg) 29 RDW (11.6 - 14.8 %) 14.2 Neut % (Auto) (50 - 75 %) 70.2 Lymph % (Auto) (25 - 40 %) 19.3 Mcleod % (Auto) (3 - 14 %) 9.9 Eos % (Auto) (0 - 4 %) 0.3 Baso % (Auto) (0 - 2 %) 0.3 Plt Count, EDTA (150 - 400 K/uL) 236 PUBS MCHC (31 - 37 g/dL) 33 Discharge Instructions/Meds For other recommendations regarding discharge diet, activity, followup, and discharge medications please see the patient's discharge instructions. Discharge condition: Fair, improved Greater than 30 min. was spent in the patient's discharge preparation including discharge interview and physical examination, progress note, discharge instructions, and discharge summary The patient was interviewed and examined on the day of discharge. E&M Codes Discharge: Inpt >30 min spent/[id number]
--- NOTE | 2016-10-26 18:45 | Provider's Discharge Care Plan ---
Problem, Goal, Plan Problem List 1. Intractable vomiting with nausea Goals: Improve disease control, Prevent disease progress Instructions: Follow up as directed, Take meds as directed, avoid marijuana usage
[2016-10-26 18:58] VITALS: BP 150/94
== END 2016-10-26 20:30 | disposition home or self-care (01) | DRG 776 ==
LOC: ED SRH 09:38 → CC SRH 13:23 → TRANS SRH 13:23 → CC SRH 13:23 → ACUTE2 SRH 13:23 → ACUTE3 SRH 15:00 → CC SRH 10-25 03:29 → ACUTE2 SRH 10-26 06:56
PROVIDERS: ADMIT Emergency Medicine
PROC: 0D9670Z Drainage of Stomach with Drainage Device, Via Natural or Artificial Opening (ICD-10-PCS; principal; 2016-10-25)
DX: F12.188 Cannabis abuse with other cannabis-induced disorder (principal); R11.2 Nausea with vomiting, unspecified; R10.84 Generalized abdominal pain; E86.0 Dehydration; N28.9 Disorder of kidney and ureter, unspecified

== ENCOUNTER 2017-03-05 00:30 | Emergency (ER) | payer OTHER ==
[~2017-03-05 00:30] MED LIST: NORTRIPTYLINE H25 MG PO; PRILOSEC10 MG PO; ZOFRAN ODT4 MG PO; ZOLOFT50 MG PO
--- NOTE | 2017-03-05 03:42 | ED NURSING NOTES ---
Clinical Report - Nurses [facility] [address] [place] [address] 03/05/2017 0:29 [id number] Triage time 00:35. Acuity: LEVEL 3. Chief Complaint: ABDOMINAL PAIN, NAUSEA, VOMITING and DIARRHEA. Alert. No acute distress. --00:39 Linda Patino R.N. 00:35 03/05/17. BP: 181/92. HR: 80. RR: 20. O2 saturation: 100% on room air. Temp: 98.1 F (oral). Aguilar-Abarca pain scale: 6/10. --00:39 Linda Patino R.N. Weight: 84.8 kg stated. Height/Length: 68 inches Per Patient. BMI: 28.4. --00:36 Linda Patino R.N. Medications Nortriptyline HCl Oral 50 mg, at bedtime. Ondansetron HCl Oral, as needed. PriLOSEC Oral. Sertraline HCl Oral 75 mg, at bedtime. --00:38 Linda Patino R.N. Allergies Penicillins. --00:38 Linda Patino R.N. History Arrived by private vehicle. Historian: patient. Primary physician (Salma Washington)). Onset. (about 24 hours ago). Treatment DIGITAL MEDIA COORDINATOR: (Zofran ODT last dose today about 4-5 hrs DIGITAL MEDIA COORDINATOR). SOCIAL HX: Never smoker. History of heavy drug use: marijuana. No alcohol use. NUTRITIONAL RISK ASSESSMENT: The nutritional risk assessment revealed no deficiencies. FUNCTIONAL ASSESSMENT: Functional assessment: no impairments noted. --00:39 Linda Patino R.N. PROBLEMS: Substance Abuse. Dehydration. Bowel Perforation. Vomiting. Hypertension. --00:38 Linda Patino R.N. ADDITIONAL SURGERIES: Appendectomy. Bowel Surgery. Colostomy. Hand. Neck Surgery. --00:38 Linda Patino R.N. Interventions ID band on patient. To treatment room. --00:39 Linda Patino R.N. PHYSICAL ASSESSMENT Ambulatory to room. Patient gowned. GENERAL / NEURO / PSYCH: Alert. Oriented X 4. Appears in no acute distress. Appears anxious. RESPIRATORY: Respirations not labored. CVS: Capillary refill less than 2 seconds. SKIN: Skin is warm and dry. --00:39 Linda Patino R.N. NURSING PROGRESS NOTES Head of bed elevated. Two patient identifiers checked. Call light placed in reach. Side rails up x 1. Bed placed in lowest position. Brakes of bed on. --00:39 Linda Patino R.N. Patient ready for evaluation- chart flagged. --00:39 Linda Patino R.N. 00:48 03/05/2017 Site #1 started via IV in the right antecubital space with an 20g angiocath, with aseptic technique and good blood return; one attempt. Blood drawn: rainbow set. Labeled in the presence of the patient and sent to the lab. Saline lock flushed with 10 mL saline. --00:48 Linda Patino R.N. Point of care testing: performed by nurse. Glucose: 165. --00:48 Linda Patino R.N. 01:03 03/05/2017 Zofran (Ondansetron HCl) IVP 4 mg given over 1 hour(s) via site #1. Allergies verified and confirmed 5 rights. IV patency established. IV site checked: no pain, redness, or swelling. IV flushed thoroughly pre- and post-medication administration. IVP given by RN. --01:04 Andrews Fernandez R.N. 01:04 03/05/2017 Started bag #1 1000 mL IV Fluids IV NS (Saline); at 1000 mL/hr over 1 hour(s) via site #1. Allergies verified and confirmed 5 rights. IV patency established. IV site checked: no pain, redness, or swelling. IV flushed thoroughly pre- and post-medication administration. Completed per protocol. --01:04 Andrews Fernandez R.N. ( urine sample requested, pt states he is unable to produce at this time. Asks for "something for anxiety", pt informed EDMD must see him first.). --01:59 Linda Patino R.N. 03:31 03/05/2017 Started bag #1 1000 mL IV Fluids IV NS (Saline); at 150 mL/hr over 6 hour(s) via site #1 via IV pump. Allergies verified and confirmed 5 rights. IV patency established. IV site checked: no pain, redness, or swelling. IV flushed thoroughly pre- and post-medication administration. --03:31 Andrews Fernandez R.N. <<STRICKEN ENTRY-- 03:51 03/05/2017 Site #1 removed upon discharge. --03:51 Andrews Fernandez R.N. --END STRIKE>> Correction. --03:51 Andrews Fernandez R.N. 03:51 03/05/2017 Site #1 removed upon discharge. Manual pressure and bandage applied. --03:51 Andrews Fernandez R.N. 03:51 03/05/17. BP: 165/93. HR: 89. RR: 28 (deep). O2 saturation: 100% on room air. Aguilar-Abarca pain scale: 0/10. --03:52 Andrews Fernandez R.N. 02:05 03/05/2017 IV Fluids IV NS Discontinued: completed. Total amount infused: 1000 mL. IV patency established. IV site checked: no pain, redness, or swelling. IV flushed thoroughly. --03:58 Andrews Fernandez R.N. 03:50 03/05/2017 IV Fluids IV NS Discontinued: STOPPED upon discharge. Total amount infused: 60 mL. IV patency established. IV site checked: no pain, redness, or swelling. IV flushed thoroughly. --03:58 Andrews Fernandez R.N. DISPOSITION / DISCHARGE Departure time: 03:53. Condition at departure: stable. No learning barriers present. Discharge instructions provided and reviewed with the patient. Reviewed warnings. Reviewed medication(s) side effects, precautions, dosing and course information. Prescription(s) given to the patient. Treatments reviewed. Reviewed referrals for followup. Patient verbalized understanding. Written instructions provided in Turkish. The patient was discharged home, accompanied by spouse and unaccompanied at time of discharge. He left the Emergency Department ambulatory and via private vehicle. Family member driving. ( Patient became anxious when I discontinued the IV. Dr. Miller made aware of discharge vitals.). --03:57 Andrews Fernandez R.N. 03:51 03/05/17. BP: 165/93. HR: 89. RR: 28 (deep). O2 saturation: 100% on room air. Aguilar-Abarca pain scale: 0/10. --03:57 Andrews Fernandez R.N. Locked/Released at 03/05/2017 3:59 by Andrews Fernandez R.N.
--- NOTE | 2017-03-05 03:42 | ED CLINICAL REPORT ---
Clinical Report - Physicians/Mid Levels [facility] [address] [place] [address] 03/05/2017 0:29 [id number] Time Seen: 00:57. Arrived- By private vehicle. Historian- patient. HISTORY OF PRESENT ILLNESS Chief Complaint: VOMITING. This started yesterday and is still present. It was abrupt in onset and has been intermittent. No recent travel. He has had nausea. He has had vomiting. The vomiting has occurred numerous times. No coffee-grounds emesis. He has had loose stools. No bloody or blood-tinged diarrhea. No black stools, bloody stools, constipation, flank pain or history of possible bad food exposure. No known contact with a sick individual or change in routine. He has had moderate, crampy abdominal pain (he attributes this to his vomiting). The pain is described as located in the upper abdomen. Has not recently been camping or on antibiotics. The illness is described as severe. Similar symptoms previously: Diagnosis: (marijuana cyclic vomiting syndrome). REVIEW OF SYSTEMS No chills, fever, sweats, calf pain or chest pain. No cough, difficulty breathing, pedal edema, palpitations or urinary problems. he reports decreased flatus. All systems otherwise negative, except as recorded above. PAST HISTORY Problems: Substance Abuse. Leukocytosis. Dehydration. Abdominal Pain. Bowel Perforation. Vomiting. Hypertension. Additional Surgeries: Appendectomy. Bowel Surgery. Colostomy. Hand. Neck Surgery. Medications: Nortriptyline HCl Oral 50 mg, at bedtime. Ondansetron HCl Oral, as needed. PriLOSEC Oral. Sertraline HCl Oral 75 mg, at bedtime. Allergies: Penicillins. SOCIAL HISTORY History of drug use: marijuana. Residence: [place]. ADDITIONAL NOTES The nursing notes have been reviewed. PHYSICAL EXAM Vital Signs: 03/05/2017 00:35 BP: 181/92. HR: 80. RR: 20. O2 saturation: 100%. Temp: 98.1 F. Aguilar-Abarca pain scale: 6/10. Have been reviewed. Appearance: Alert. Eyes: Pupils equal, round and reactive to light. ENT: Pharynx normal. Neck: Neck supple. CVS: Normal heart rate and rhythm. Respiratory: No respiratory distress. Breath sounds normal. Back: Normal inspection. Skin: Skin warm and dry. Normal skin color. Normal skin turgor. Extremities: Extremities exhibit normal ROM. No lower extremity edema. LABS, X-RAYS, AND EKG Abdominal CT: conclusion: Postoperative change in the bowel. Fairly collapsed colon with apparent wall thickening may be artifact, cannot rule out colitis. Correlate clinically. No bowel perforation or SBO. This is per the maintenance technician 3rd shift radiology preliminary report. The study was interpreted by the radiologist and contemporaneously by me. Laboratory Tests: UA-Culture if indicated: (ROBERTO: 03/05/2017 02:40) ( MsgRcvd 03/05/2017 02:57) Final results Test Result Flag Units (Reference) URINE COLOR YELLOW URINE APPEARANCE CLEAR URINE GLUCOSE TRACE (NEGATIVE) URINE BILIRUBIN NEGATIVE (NEGATIVE) URINE KETONE TRACE (NEGATIVE) URINE SPECIFIC GRAVITY 1.020 (1.010-1.030) URINE PH 7.5 (5.0-8.0) URINE PROTEIN NEGATIVE (NEGATIVE) URINE UROBILINOGEN 0.2 EU/dL (0.2-1.0) URINE NITRITE NEGATIVE (NEGATIVE) URINE BLOOD TRACE-INTACT (NEGATIVE) URINE LEUK ESTERASE NEGATIVE (NEGATIVE) URINE RBC 3-5 rbc/hpf (0-1) URINE WBC 0-1 wbc/hpf (0-1) URINE EPITHELIAL CELLS 0-1 EPI/hpf (0-5) URINE BACTERIA TRACE (<1+) (NONE SEEN) URINE COMMENT CULT NOT INDICATED URINE CULTURES ARE SET-UP BASED ON THE FOLLOWING CRITERIA:POSITIVE NITRITEPOSITIVE LEUKOCYTE ESTERASEGREATER THAN 10 WHITE BLOOD CELLSMODERATE (2+) OR GREATER BACTERIA CBC w Diff: (ROBERTO: 03/05/2017 00:47) ( MsgRcvd 03/05/2017 01:05) Final results Test Result Flag Units (Reference) WHITE BLOOD COUNT 17.0 H K/uL (4.5-11.5) RED BLOOD COUNT 4.91 M/uL (4.50-5.90) HEMOGLOBIN 14.4 gm/dL (13.5-17.5) HEMATOCRIT 43.6 % (41.0-53.0) MEAN CELL VOLUME 89 fL (80-100) MEAN CORPUSCULAR HGB 29 pg (26-34) MEAN CORPUSCULAR HGB CONC 33 g/dL (31-37) RED CELL DISTRIBUTION WIDTH 13.9 % (11.6-14.8) PLATELET COUNT 279 K/uL (150-400) NEUTROPHIL % 92.5 H % (50-75) LYMPH % 4.4 L % (25-40) MONO % 3.1 % (3-14) EOSINOPHIL % 0 % (0-4) BASOPHIL % 0 % (0-2) Urine Drug Screen: (ROBERTO: 03/05/2017 02:40) ( MsgRcvd 03/05/2017 03:02) Final results Test Result Flag Units (Reference) AMPHETAMINE/METHAMPHETAMINE NEGATIVE (NEGATIVE) BARBITURATE NEGATIVE (NEGATIVE) BENZODIAZEPINE NEGATIVE (NEGATIVE) CANNABINOID POSITIVE H (NEGATIVE) COCAINE NEGATIVE (NEGATIVE) ECSTASY NEGATIVE (NEGATIVE) METHADONE NEGATIVE (NEGATIVE) OPIATE NEGATIVE (NEGATIVE) The urine drug screen is a qualitative screening test fordrug overdose and abuse. All screen results should beconsidered as presumptive.Drugs screened for are as follows:BenzodiazepinesCocaineAmphetamines/MetamphetaminesTHC (Tetrahydrocannabinol)OpiatesBarbituratesEcstasyMethadonePositive results are unconfirmed. For confirmation, notifythe lab for the specimen to be sent to the reference lab.All confirmations must be performed by a differentmethodology.The ingestion of natural herbal and plant productscontaining Ephedra/Ephedra metabolites can produce in urineone or more substances capable of cross reacting withamphetamine/methamphetamine immunoassays. These testsprovide a preliminary result only. A more specificalternative chemical method must be used to obtain aconfirmed analytical result. CMP: (ROBERTO: 03/05/2017 00:47) ( MsgRcvd 03/05/2017 01:15) Final results Test Result Flag Units (Reference) GLUCOSE 180 H mg/dL (70-110) BUN 14 mg/dL (7-18) CREATININE 1.4 H mg/dL (0.6-1.3) Estimated GFR 57.01 mL/min Estimated GFR- >60 mL/min Note: Persistent reduction over 3 months in eGFR<60 mL/min/1.73 m2 defines CKD. Patients with eGFR values>=60 mL/min/1.73 m2 may also have CKD if evidence ofpersistent proteinuria. Additional information may be foundat www.kidney.org. SODIUM 141 mmol/L (136-145) POTASSIUM 4.1 mmol/L (3.5-5.1) CHLORIDE 104 mmol/L (98-107) CARBON DIOXIDE 21 mmol/L (21-32) CALCIUM 10.3 H mg/dL (8.5-10.1) TOTAL PROTEIN 8.8 H g/dL (6.4-8.2) ALBUMIN 4.3 g/dL (3.3-5.0) BILIRUBIN, TOTAL 0.3 mg/dL (0.0-1.0) ALKALINE PHOSPHATASE 105 U/L (46-116) AST (SGOT) 14 L U/L (15-37) ALT (SGPT) 25 U/L (12-78) LIPASE 119 U/L (73-393) AMYLASE 40 U/L (25-115) . PROGRESS AND PROCEDURES Patient/family counseled. Old medical records reviewed. Disposition: Discharged. Condition: stable. CLINICAL IMPRESSION Vomiting with nausea. Leukocytosis. Substance abuse- marijuana. Cannabinoid hyperemesis syndrome. INSTRUCTIONS Drink plenty of fluids. (discontinue the use of marijuana as discussed). Warnings: Further evaluation is necessary. GENERAL WARNINGS: Return or contact your physician immediately if your condition worsens or changes unexpectedly, if not improving as expected, or if other problems arise. Your Current Medications: CONTINUE TAKING THE FOLLOWING MEDICATIONS: Nortriptyline HCl Oral : 50 mg at bedtime. Ondansetron HCl Oral : prn. PriLOSEC Oral. Sertraline HCl Oral : 75 mg at bedtime. Prescription Medications: Zofran 4 mg: Take 1 orally every six hours as needed for nausea/vomiting. Dispense ten (10). No refills. Substitution is permissible. Follow-up: Follow up with your doctor NHAN SCOTT today. Call for the next available appointment. Understanding of the discharge instructions verbalized by patient. (Electronically signed by Heber Miller MD 03/05/2017 8:04)
--- NOTE | 2017-03-05 03:42 | ED NURSING NOTES ---
Clinical Report - Nurses [facility] [address] [place] [address] 03/05/2017 0:29 [id number] Triage time 00:35. Acuity: LEVEL 3. Chief Complaint: ABDOMINAL PAIN, NAUSEA, VOMITING and DIARRHEA. Alert. No acute distress. --00:39 Linda Patino R.N. 00:35 03/05/17. BP: 181/92. HR: 80. RR: 20. O2 saturation: 100% on room air. Temp: 98.1 F (oral). Aguilar-Abarca pain scale: 6/10. --00:39 Linda Patino R.N. Weight: 84.8 kg stated. Height/Length: 68 inches Per Patient. BMI: 28.4. --00:36 Linda Patino R.N. Medications Nortriptyline HCl Oral 50 mg, at bedtime. Ondansetron HCl Oral, as needed. PriLOSEC Oral. Sertraline HCl Oral 75 mg, at bedtime. --00:38 Linda Patino R.N. Allergies Penicillins. --00:38 Linda Patino R.N. History Arrived by private vehicle. Historian: patient. Primary physician (Salma Washington)). Onset. (about 24 hours ago). Treatment PRICING ACTUARY: (Zofran ODT last dose today about 4-5 hrs PRICING ACTUARY). SOCIAL HX: Never smoker. History of heavy drug use: marijuana. No alcohol use. NUTRITIONAL RISK ASSESSMENT: The nutritional risk assessment revealed no deficiencies. FUNCTIONAL ASSESSMENT: Functional assessment: no impairments noted. --00:39 Linda Patino R.N. PROBLEMS: Substance Abuse. Dehydration. Bowel Perforation. Vomiting. Hypertension. --00:38 Linda Patino R.N. ADDITIONAL SURGERIES: Appendectomy. Bowel Surgery. Colostomy. Hand. Neck Surgery. --00:38 Linda Patino R.N. Interventions ID band on patient. To treatment room. --00:39 Linda Patino R.N. PHYSICAL ASSESSMENT Ambulatory to room. Patient gowned. GENERAL / NEURO / PSYCH: Alert. Oriented X 4. Appears in no acute distress. Appears anxious. RESPIRATORY: Respirations not labored. CVS: Capillary refill less than 2 seconds. SKIN: Skin is warm and dry. --00:39 Linda Patino R.N. NURSING PROGRESS NOTES Head of bed elevated. Two patient identifiers checked. Call light placed in reach. Side rails up x 1. Bed placed in lowest position. Brakes of bed on. --00:39 Linda Patino R.N. Patient ready for evaluation- chart flagged. --00:39 Linda Patino R.N. 00:48 03/05/2017 Site #1 started via IV in the right antecubital space with an 20g angiocath, with aseptic technique and good blood return; one attempt. Blood drawn: rainbow set. Labeled in the presence of the patient and sent to the lab. Saline lock flushed with 10 mL saline. --00:48 Linda Patino R.N. Point of care testing: performed by nurse. Glucose: 165. --00:48 Linda Patino R.N. 01:03 03/05/2017 Zofran (Ondansetron HCl) IVP 4 mg given over 1 hour(s) via site #1. Allergies verified and confirmed 5 rights. IV patency established. IV site checked: no pain, redness, or swelling. IV flushed thoroughly pre- and post-medication administration. IVP given by RN. --01:04 Andrews Fernandez R.N. 01:04 03/05/2017 Started bag #1 1000 mL IV Fluids IV NS (Saline); at 1000 mL/hr over 1 hour(s) via site #1. Allergies verified and confirmed 5 rights. IV patency established. IV site checked: no pain, redness, or swelling. IV flushed thoroughly pre- and post-medication administration. Completed per protocol. --01:04 Andrews Fernandez R.N. ( urine sample requested, pt states he is unable to produce at this time. Asks for "something for anxiety", pt informed EDMD must see him first.). --01:59 Linda Patino R.N. 03:31 03/05/2017 Started bag #1 1000 mL IV Fluids IV NS (Saline); at 150 mL/hr over 6 hour(s) via site #1 via IV pump. Allergies verified and confirmed 5 rights. IV patency established. IV site checked: no pain, redness, or swelling. IV flushed thoroughly pre- and post-medication administration. --03:31 Andrews Fernandez R.N. <<STRICKEN ENTRY-- 03:51 03/05/2017 Site #1 removed upon discharge. --03:51 Andrews Fernandez R.N. --END STRIKE>> Correction. --03:51 Andrews Fernandez R.N. 03:51 03/05/2017 Site #1 removed upon discharge. Manual pressure and bandage applied. --03:51 Andrews Fernandez R.N. 03:51 03/05/17. BP: 165/93. HR: 89. RR: 28 (deep). O2 saturation: 100% on room air. Aguilar-Abarca pain scale: 0/10. --03:52 Andrews Fernandez R.N. 02:05 03/05/2017 IV Fluids IV NS Discontinued: completed. Total amount infused: 1000 mL. IV patency established. IV site checked: no pain, redness, or swelling. IV flushed thoroughly. --03:58 Andrews Fernandez R.N. 03:50 03/05/2017 IV Fluids IV NS Discontinued: STOPPED upon discharge. Total amount infused: 60 mL. IV patency established. IV site checked: no pain, redness, or swelling. IV flushed thoroughly. --03:58 Andrews Fernandez R.N. DISPOSITION / DISCHARGE Departure time: 03:53. Condition at departure: stable. No learning barriers present. Discharge instructions provided and reviewed with the patient. Reviewed warnings. Reviewed medication(s) side effects, precautions, dosing and course information. Prescription(s) given to the patient. Treatments reviewed. Reviewed referrals for followup. Patient verbalized understanding. Written instructions provided in Hungarian. The patient was discharged home, accompanied by spouse and unaccompanied at time of discharge. He left the Emergency Department ambulatory and via private vehicle. Family member driving. ( Patient became anxious when I discontinued the IV. Dr. Miller made aware of discharge vitals.). --03:57 Andrews Fernandez R.N. 03:51 03/05/17. BP: 165/93. HR: 89. RR: 28 (deep). O2 saturation: 100% on room air. Aguilar-Abarca pain scale: 0/10. --03:57 Andrews Fernandez R.N. Locked/Released at 03/05/2017 3:59 by Andrews Fernandez R.N.
--- NOTE | 2017-03-05 03:42 | ED ORDER SUMMARY ---
..... Patient: EUSEBIO SETHI OrderSheet [facility] VisitID: [id number] [place] [address] 52y, M Registration Date/Time: 03/05/2017 ORDER SHEET Weight: 84.8 kg (stated) Allergies: Penicillins GENERAL ORDERS: CBC w Diff Urgent (00:58 03/05/2017 Stefanie ANN) (0:59 DDavis R.N.) CMP Urgent (00:58 03/05/2017 Stefanie ANN) (0:59 DDavis R.N.) UA-Culture if indicated Urgent (00:58 03/05/2017 Stefanie ANN) (Ack 1:01 [facility]) (2:46 [facility]) Amylase Urgent (00:58 03/05/2017 Stefanie ANN) (0:59 DDavis R.N.) Lipase Urgent (00:58 03/05/2017 Stefanie ANN) (1:00 DDavis R.N.) Urine Drug Screen Urgent (02:19 03/05/2017 Stefanie ANN) (Ack 2:36 [facility]) (2:46 [facility]) CT Abd/Pel w Cont (No) (See report) Urgent (02:24 03/05/2017 Stefanie ANN) (Ack 2:36 [facility]) (3:[facility] MEDICATION ORDERS: IV FLUIDS: IV NS : initial bolus 1000 mL (1000 mL/hr), then 150 mL/hr for 4h (NOW); Urgent (00:57 03/05/2017 Stefanie ANN) (1:04 DDavis R.N.) Zofran IV 4 mg (NOW) (00:58 03/05/2017 Stefanie ANN) (1:04 DDavis R.N.) ORDER SHEET NOTES: [Electronically signed by Andrews Fernandez R.N. (03:59 03/05/2017)] [Electronically signed by Heber Miller MD (08:04 03/05/2017)] [Electronically locked/signed by Andrews Fernandez R.N. (03:59 03/05/2017)]
--- NOTE | 2017-03-05 03:42 | ED ORDER SUMMARY ---
..... Patient: EUSEBIO SETHI OrderSheet [facility] VisitID: [id number] [place] [address] 52y, M Registration Date/Time: 03/05/2017 ORDER SHEET Weight: 84.8 kg (stated) Allergies: Penicillins GENERAL ORDERS: CBC w Diff Urgent (00:58 03/05/2017 Stefanie ANN) (0:59 DDavis R.N.) CMP Urgent (00:58 03/05/2017 Stefanie ANN) (0:59 DDavis R.N.) UA-Culture if indicated Urgent (00:58 03/05/2017 Stefanie ANN) (Ack 1:01 [facility] Support Specialist) (2:46 [facility]) Amylase Urgent (00:58 03/05/2017 Stefanie ANN) (0:59 DDavis R.N.) Lipase Urgent (00:58 03/05/2017 Stefanie ANN) (1:00 DDavis R.N.) Urine Drug Screen Urgent (02:19 03/05/2017 Stefanie ANN) (Ack 2:36 [facility]) (2:46 [facility]) CT Abd/Pel w Cont (No) (See report) Urgent (02:24 03/05/2017 Stefanie ANN) (Ack 2:36 [place]) (3:[facility] MEDICATION ORDERS: IV FLUIDS: IV NS : initial bolus 1000 mL (1000 mL/hr), then 150 mL/hr for 4h (NOW); Urgent (00:57 03/05/2017 Stefanie ANN) (1:04 DDavis R.N.) Zofran IV 4 mg (NOW) (00:58 03/05/2017 Stefanie ANN) (1:04 DDavis R.N.) ORDER SHEET NOTES: [Electronically signed by Andrews Fernandez R.N. (03:59 03/05/2017)] [Electronically signed by Heber Miller MD (08:04 03/05/2017)] [Electronically locked/signed by Andrews Fernandez R.N. (03:59 03/05/2017)]
--- NOTE | 2017-03-05 06:50 | DIAGNOSTIC IMAGING REPORT ---
PROCEDURE: CT ABD/PELVIS WITH CONTRAST CLINICAL INDICATION: ABDOMINAL PAIN TECHNIQUE: 125 ml of Isovue 300 were injected intravenously and axial images were obtained of the entire abdomen and pelvis with sagittal and coronal reformations. COMPARISON: CT abdomen/pelvis 10/25/2016. FINDINGS: ABDOMEN: Lung base are clear. Heart size is normal. Large and small bowel anastomoses. Fecalization of the terminal small bowel. No evidence of bowel obstruction. Stable 4 mm low-density lesion in the left hepatic lobe, likely a small cyst or hemangioma. Gallbladder, pancreas, spleen, adrenal glands and kidneys are normal. Mild atherosclerosis of the aorta. PELVIS: Normal prostate and bladder. No pelvic mass, inflammatory changes or free fluid. No suspicious osseous lesions. IMPRESSION: 1. Postoperative changes of the small and large bowel with fecalization of the distal small bowel but no evidence of bowel obstruction 2. Preliminary results submitted by Dr. Rosa, [facility] radiology. All CT scans at this facility use dose modulation, iterative reconstruction, and/or weight-based dosing when appropriate to reduce radiation dose to as low as reasonably achievable.
--- NOTE | 2017-03-05 08:04 | ED MAR SUMMARY ---
..... Medication Administration Record [facility] [address] [place] [address] Patient: EUSEBIO SETHI Visit ID: [id number] 52y, M Weight: 84.8 kg Height/Length: 68 in BMI: 28.4 ALLERGIES: Penicillins Given 01:03 03/05/2017 Andrews Fernandez R.N. Medication Administered: ZOFRAN [IVP] (ONDANSETRON HCL), Dose: 4 mg IVP over 1 hour(s), Site: #1 right AC. Medication Ordered: Zofran IV 4 mg (NOW). Start 01:04 03/05/2017 Andrews Fernandez R.N., Stop 02:05 03/05/2017 Andrews Fernandez R.N. Medication Administered: IV NS (SALINE), Dose: IV Fluids over 1 hour(s), Rate: 1000 mL/hr, Dispensed: 1000 mL bag, Site: #1 right AC. Medication Ordered: IV NS : initial bolus 1000 mL (1000 mL/hr), then 150 mL/hr for 4h (NOW); Urgent. Start 03:31 03/05/2017 Andrews Fernandez R.N., Stop 03:50 03/05/2017 Andrews Fernandez R.N. Medication Administered: IV NS (SALINE), Dose: IV Fluids over 6 hour(s), Rate: 150 mL/hr, Dispensed: 1000 mL bag, Site: #1 right AC. Medication Ordered: IV NS : initial bolus 1000 mL (1000 mL/hr), then 150 mL/hr for 4h (NOW); Urgent.
--- NOTE | 2017-03-05 08:04 | ED MED RECONCILIATION SUMMARY ---
Patient: EUSEBIO SETHI Medication Reconciliation Report [facility] VisitID: [id number] [address] [place] [address] 52y, M Registration Date/Time: 03/05/2017 Weight: 84.8 kg Height/Length: 68 in. BMI: 28.4 ALLERGIES: Penicillins The patient's Home Medications are listed below: CONTINUE TAKING THE FOLLOWING MEDICATIONS: Nortriptyline HCl Oral 50 mg, at bedtime Ondansetron HCl Oral PriLOSEC Oral Sertraline HCl Oral 75 mg, at bedtime The source(s) of the original Home Medication information: Not obtained. The following Medications were given to the patient in the Emergency Department: IV NS IV Fluids bolus 0, then 1000 mL/hr, administered: 03/05/2017 1:04:00 AM Zofran [IVP] IVP 4 mg, administered: 03/05/2017 1:03:00 AM IV NS IV Fluids bolus 0, then 150 mL/hr, administered: 03/05/2017 3:31:00 AM The following Medications were prescribed to the patient: Zofran 4 mg: Take 1 orally every six hours as needed for nausea/vomiting. Dispense ten (10). No refills. Substitution is permissible. -- Heber Miller MD
--- NOTE | 2017-03-05 08:04 | ED DISCHARGE INSTRUCTIONS ---
Patient: EUSEBIO SETHI General Instructions [facility] VisitID: [id number] [place] [address] 52y, M Registration Date/Time: 03/05/2017 Vomiting with nausea. Leukocytosis. Substance abuse- marijuana. Cannabinoid hyperemesis syndrome. INSTRUCTIONS Drink plenty of fluids. (discontinue the use of marijuana as discussed). Warnings: Further evaluation is necessary. GENERAL WARNINGS: Return or contact your physician immediately if your condition worsens or changes unexpectedly, if not improving as expected, or if other problems arise. Your Current Medications: CONTINUE TAKING THE FOLLOWING MEDICATIONS: Nortriptyline HCl Oral : 50 mg at bedtime. Ondansetron HCl Oral : prn. PriLOSEC Oral. Sertraline HCl Oral : 75 mg at bedtime. Prescription Medications: Zofran 4 mg: Take 1 orally every six hours as needed for nausea/vomiting. Dispense ten (10). No refills. Substitution is permissible. Follow-up: Follow up with your doctor NHAN SCOTT today. Call for the next available appointment. Understanding of the discharge instructions verbalized by patient. ADDITIONAL INFORMATION Vomiting [6Yr-Adult] Vomiting is a common symptom that may be due to different causes. These include gastroenteritis ("stomach flu"), food poisoning and gastritis. There are other more serious causes of vomiting which may be hard to diagnose early in the illness. Therefore, it is important to watch for the warning signs listed below. The main danger from repeated vomiting is dehydration. This is due to excess loss of water and minerals from the body. When this occurs, body fluids must be replaced. Home Care: If symptoms are severe, rest at home for the next 24 hours. You may use acetaminophen (Tylenol) or ibuprofen (Motrin, Advil) to control fever, unless another medicine was prescribed. [NOTE : If you have chronic liver or kidney disease or ever had a stomach ulcer or GI bleeding, talk with your doctor before using these medicines.] (Aspirin should never be used in anyone under 18 years of age who is ill with a fever. It may cause severe liver damage.) Avoid tobacco and alcohol use, which may worsen your symptoms. If medicines for vomiting were prescribed, take as directed. Once vomiting stops, then follow these guidelines: During The First 12-24 Hours follow the diet below: FRUIT JUICES: Apple, grape juice, clear fruit drinks, and electrolyte replacement drinks. BEVERAGES: Soft drinks without caffeine; mineral water (plain or flavored), decaffeinated tea and coffee. SOUPS: Clear broth, consomm and bouillon DESSERTS: Plain gelatin, popsicles and fruit juice bars. As you feel better, you may add 6-8 ounces of yogurt per day. During The Next 24 Hours you may add the following to the above: Hot cereal, plain toast, bread, rolls, crackers Plain noodles, rice, mashed potatoes, chicken noodle or rice soup Unsweetened canned fruit (avoid pineapple), bananas Limit caffeine and chocolate. No spices or seasonings except salt. During The Next 24 Hours Gradually resume a normal diet, as you feel better and your symptoms lessen. Follow Up with your doctor as advised if you are not improving over the next 2-3 days. Get Prompt Medical Attention if any of the following occur: Constant right-sided lower abdominal pain or increasing general abdominal pain Continued vomiting (unable to keep liquids down) for 24 hours Frequent diarrhea (more than 5 times a day); blood (red or black color) or mucus in diarrhea Reduced urine output or extreme thirst Weakness, dizziness or fainting Unusually drowsy or confused Fever of 100.4F (38C) oral or higher, not better with fever medication Yellow color of the eyes or skin Marijuana Abuse Marijuana is the most widely used illegal drug in the [place]. It is called by various names such as pot, weed, blunts, grass, reefer, ganja, hash, hashish. It is usually smoked but can be mixed with foods or brewed as a tea. It is sometimes sold with PCP (Gilmer Dust) or amphetamine mixed in it. These drugs can cause other harmful side effects. Marijuana can cause the following effects: Changes in mood (stimulated, happy, drowsy, depressed, paranoid) Hallucinations Increased heart rate and blood pressure Increased appetite Time distortion, difficulty concentrating, impaired memory Lung damage (similar to cigarettes with chronic cough, wheezing, frequent colds and bronchitis) You can become psychologically dependent on marijuana. That means the craving to use the drug is emotional or psychological rather than due to physical withdrawal. Is Marijuana Running Your Life? Here are some of the signs: Relying on marijuana to feel good, forget problems, deal with stress or to relax Wanting to be alone most of the time or only with others who use drugs Losing interest in things that used to be important Changes in school or job performance or attendance Spending a lot of time thinking about how to get marijuana Stealing or selling your things so you can buy marijuana Unable to stop using even though you may want to quit Increasing anxiety, anger,or depression Sleeping too much, changes in eating habits (weight loss or gain) Needing to use more to get the same effect Home Care Once you have become addicted to any drug, quitting is hard to do. Most people find they can't quit without help. So, dont try to do this alone. Talk to someone you trust who can support you. Seek professional help. Avoid people and places where drugs are used. That only increases the temptation to use. Follow Up with your doctor or as advised by our staff. For more information or a referral to a treatment center in your area, contact: Your local mental health center or the National Alcohol and Substance Abuse Information Center (415)-877-9944 www.addictioncareoptions.com National [place] on Alcoholism and Drug Dependence 535-942-PTYA www.ncadd.org Marijuana Anonymous 868-172-5646 www.marijuana-anonymous.org Get Prompt Medical Attention if any of the following occur: You feel extreme depression, fear, anxiety, or anger toward yourself or others You feel out of control You feel that you may try to harm yourself or another Ondansetron Oral disintegrating tablet What is this medicine? ONDANSETRON (on LAURY se keyur) is used to treat nausea and vomiting caused by chemotherapy. It is also used to prevent or treat nausea and vomiting after surgery. How should I use this medicine? These tablets are made to dissolve in the mouth. Do not try to push the tablet through the foil backing. With dry hands, peel away the foil backing and gently remove the tablet. Place the tablet in the mouth and allow it to dissolve, then swallow. While you may take these tablets with water, it is not necessary to do so. Talk to your steamer gum candy regarding the use of this medicine in children. Special care may be needed. What side effects may I notice from receiving this medicine? Side effects that you should report to your doctor or health critical care nurse practitioner as soon as possible: allergic reactions like skin rash, itching or hives, swelling of the face, lips, or tongue breathing problems dizziness fast or irregular heartbeat feeling faint or lightheaded, falls fever and chills swelling of the hands and feet tightness in the chest Side effects that usually do not require medical attention (report to your doctor or health critical care nurse practitioner if they continue or are bothersome): constipation or diarrhea headache What may interact with this medicine? Do not take this medicine with any of the following medications: -apomorphine -cisapride -dofetilide -dronedarone -pimozide -thioridazine -ziprasidone This medicine may also interact with the following medications: -carbamazepine -phenytoin -rifampicin -tramadol -other medicines that prolong the QT interval (cause an abnormal heart rhythm) What if I miss a dose? If you miss a dose, take it as soon as you can. If it is almost time for your next dose, take only that dose. Do not take double or extra doses. Where should I keep my medicine? Keep out of the reach of children. Store between 2 and 30 degrees C (36 and 86 degrees F). Throw away any unused medicine after the expiration date. What should I tell my health care provider before I take this medicine? They need to know if you have any of these conditions: heart disease history of irregular heartbeat liver disease low levels of magnesium or potassium in the blood an unusual or allergic reaction to ondansetron, granisetron, other medicines, foods, dyes, or preservatives or trying to get breast-feeding What should I watch for while using this medicine? Check with your doctor or health critical care nurse practitioner as soon as you can if you have any sign of an allergic reaction. You have been given the following additional information: Vomiting (6Y-Adult) Marijuana Abuse Ondansetron Oral disintegrating tablet (Electronically signed by Heber Miller MD 03/05/2017 8:04)
--- NOTE | 2017-03-05 08:04 | ED MAR SUMMARY ---
..... Medication Administration Record [facility] [address] [place] [address] Patient: EUSEBIO SETHI Visit ID: [id number] 52y, M Weight: 84.8 kg Height/Length: 68 in BMI: 28.4 ALLERGIES: Penicillins Given 01:03 03/05/2017 Andrews Fernandez R.N. Medication Administered: ZOFRAN [IVP] (ONDANSETRON HCL), Dose: 4 mg IVP over 1 hour(s), Site: #1 right AC. Medication Ordered: Zofran IV 4 mg (NOW). Start 01:04 03/05/2017 Andrews Fernandez R.N., Stop 02:05 03/05/2017 Andrews Fernandez R.N. Medication Administered: IV NS (SALINE), Dose: IV Fluids over 1 hour(s), Rate: 1000 mL/hr, Dispensed: 1000 mL bag, Site: #1 right AC. Medication Ordered: IV NS : initial bolus 1000 mL (1000 mL/hr), then 150 mL/hr for 4h (NOW); Urgent. Start 03:31 03/05/2017 Andrews Fernandez R.N., Stop 03:50 03/05/2017 Andrews Fernandez R.N. Medication Administered: IV NS (SALINE), Dose: IV Fluids over 6 hour(s), Rate: 150 mL/hr, Dispensed: 1000 mL bag, Site: #1 right AC. Medication Ordered: IV NS : initial bolus 1000 mL (1000 mL/hr), then 150 mL/hr for 4h (NOW); Urgent.
--- NOTE | 2017-03-05 08:04 | ED DISCHARGE INSTRUCTIONS ---
Patient: EUSEBIO SETHI General Instructions [facility] VisitID: [id number] [place] [address] 52y, M Registration Date/Time: 03/05/2017 Vomiting with nausea. Leukocytosis. Substance abuse- marijuana. Cannabinoid hyperemesis syndrome. INSTRUCTIONS Drink plenty of fluids. (discontinue the use of marijuana as discussed). Warnings: Further evaluation is necessary. GENERAL WARNINGS: Return or contact your physician immediately if your condition worsens or changes unexpectedly, if not improving as expected, or if other problems arise. Your Current Medications: CONTINUE TAKING THE FOLLOWING MEDICATIONS: Nortriptyline HCl Oral : 50 mg at bedtime. Ondansetron HCl Oral : prn. PriLOSEC Oral. Sertraline HCl Oral : 75 mg at bedtime. Prescription Medications: Zofran 4 mg: Take 1 orally every six hours as needed for nausea/vomiting. Dispense ten (10). No refills. Substitution is permissible. Follow-up: Follow up with your doctor NHAN SCOTT today. Call for the next available appointment. Understanding of the discharge instructions verbalized by patient. ADDITIONAL INFORMATION Vomiting [6Yr-Adult] Vomiting is a common symptom that may be due to different causes. These include gastroenteritis ("stomach flu"), food poisoning and gastritis. There are other more serious causes of vomiting which may be hard to diagnose early in the illness. Therefore, it is important to watch for the warning signs listed below. The main danger from repeated vomiting is dehydration. This is due to excess loss of water and minerals from the body. When this occurs, body fluids must be replaced. Home Care: If symptoms are severe, rest at home for the next 24 hours. You may use acetaminophen (Tylenol) or ibuprofen (Motrin, Advil) to control fever, unless another medicine was prescribed. [NOTE : If you have chronic liver or kidney disease or ever had a stomach ulcer or GI bleeding, talk with your doctor before using these medicines.] (Aspirin should never be used in anyone under 18 years of age who is ill with a fever. It may cause severe liver damage.) Avoid tobacco and alcohol use, which may worsen your symptoms. If medicines for vomiting were prescribed, take as directed. Once vomiting stops, then follow these guidelines: During The First 12-24 Hours follow the diet below: FRUIT JUICES: Apple, grape juice, clear fruit drinks, and electrolyte replacement drinks. BEVERAGES: Soft drinks without caffeine; mineral water (plain or flavored), decaffeinated tea and coffee. SOUPS: Clear broth, consomm and bouillon DESSERTS: Plain gelatin, popsicles and fruit juice bars. As you feel better, you may add 6-8 ounces of yogurt per day. During The Next 24 Hours you may add the following to the above: Hot cereal, plain toast, bread, rolls, crackers Plain noodles, rice, mashed potatoes, chicken noodle or rice soup Unsweetened canned fruit (avoid pineapple), bananas Limit caffeine and chocolate. No spices or seasonings except salt. During The Next 24 Hours Gradually resume a normal diet, as you feel better and your symptoms lessen. Follow Up with your doctor as advised if you are not improving over the next 2-3 days. Get Prompt Medical Attention if any of the following occur: Constant right-sided lower abdominal pain or increasing general abdominal pain Continued vomiting (unable to keep liquids down) for 24 hours Frequent diarrhea (more than 5 times a day); blood (red or black color) or mucus in diarrhea Reduced urine output or extreme thirst Weakness, dizziness or fainting Unusually drowsy or confused Fever of 100.4F (38C) oral or higher, not better with fever medication Yellow color of the eyes or skin Marijuana Abuse Marijuana is the most widely used illegal drug in the [place]. It is called by various names such as pot, weed, blunts, grass, reefer, ganja, hash, hashish. It is usually smoked but can be mixed with foods or brewed as a tea. It is sometimes sold with PCP (Gilmer Dust) or amphetamine mixed in it. These drugs can cause other harmful side effects. Marijuana can cause the following effects: Changes in mood (stimulated, happy, drowsy, depressed, paranoid) Hallucinations Increased heart rate and blood pressure Increased appetite Time distortion, difficulty concentrating, impaired memory Lung damage (similar to cigarettes with chronic cough, wheezing, frequent colds and bronchitis) You can become psychologically dependent on marijuana. That means the craving to use the drug is emotional or psychological rather than due to physical withdrawal. Is Marijuana Running Your Life? Here are some of the signs: Relying on marijuana to feel good, forget problems, deal with stress or to relax Wanting to be alone most of the time or only with others who use drugs Losing interest in things that used to be important Changes in school or job performance or attendance Spending a lot of time thinking about how to get marijuana Stealing or selling your things so you can buy marijuana Unable to stop using even though you may want to quit Increasing anxiety, anger,or depression Sleeping too much, changes in eating habits (weight loss or gain) Needing to use more to get the same effect Home Care Once you have become addicted to any drug, quitting is hard to do. Most people find they can't quit without help. So, dont try to do this alone. Talk to someone you trust who can support you. Seek professional help. Avoid people and places where drugs are used. That only increases the temptation to use. Follow Up with your doctor or as advised by our staff. For more information or a referral to a treatment center in your area, contact: Your local mental health center or the National Alcohol and Substance Abuse Information Center (658)-760-5734 www.addictioncareoptions.com National [place] on Alcoholism and Drug Dependence 871-702-HSHZ www.ncadd.org Marijuana Anonymous 565-645-2508 www.marijuana-anonymous.org Get Prompt Medical Attention if any of the following occur: You feel extreme depression, fear, anxiety, or anger toward yourself or others You feel out of control You feel that you may try to harm yourself or another Ondansetron Oral disintegrating tablet What is this medicine? ONDANSETRON (on LAURY se keyur) is used to treat nausea and vomiting caused by chemotherapy. It is also used to prevent or treat nausea and vomiting after surgery. How should I use this medicine? These tablets are made to dissolve in the mouth. Do not try to push the tablet through the foil backing. With dry hands, peel away the foil backing and gently remove the tablet. Place the tablet in the mouth and allow it to dissolve, then swallow. While you may take these tablets with water, it is not necessary to do so. Talk to your assistant statistician regarding the use of this medicine in children. Special care may be needed. What side effects may I notice from receiving this medicine? Side effects that you should report to your doctor or health wound care specialist as soon as possible: allergic reactions like skin rash, itching or hives, swelling of the face, lips, or tongue breathing problems dizziness fast or irregular heartbeat feeling faint or lightheaded, falls fever and chills swelling of the hands and feet tightness in the chest Side effects that usually do not require medical attention (report to your doctor or health wound care specialist if they continue or are bothersome): constipation or diarrhea headache What may interact with this medicine? Do not take this medicine with any of the following medications: -apomorphine -cisapride -dofetilide -dronedarone -pimozide -thioridazine -ziprasidone This medicine may also interact with the following medications: -carbamazepine -phenytoin -rifampicin -tramadol -other medicines that prolong the QT interval (cause an abnormal heart rhythm) What if I miss a dose? If you miss a dose, take it as soon as you can. If it is almost time for your next dose, take only that dose. Do not take double or extra doses. Where should I keep my medicine? Keep out of the reach of children. Store between 2 and 30 degrees C (36 and 86 degrees F). Throw away any unused medicine after the expiration date. What should I tell my health care provider before I take this medicine? They need to know if you have any of these conditions: heart disease history of irregular heartbeat liver disease low levels of magnesium or potassium in the blood an unusual or allergic reaction to ondansetron, granisetron, other medicines, foods, dyes, or preservatives or trying to get breast-feeding What should I watch for while using this medicine? Check with your doctor or health wound care specialist as soon as you can if you have any sign of an allergic reaction. You have been given the following additional information: Vomiting (6Y-Adult) Marijuana Abuse Ondansetron Oral disintegrating tablet (Electronically signed by Heber Miller MD 03/05/2017 8:04)
--- NOTE | 2017-03-05 08:04 | ED MED RECONCILIATION SUMMARY ---
Patient: EUSEBIO SETHI Medication Reconciliation Report [facility] VisitID: [id number] [address] [place] [address] 52y, M Registration Date/Time: 03/05/2017 Weight: 84.8 kg Height/Length: 68 in. BMI: 28.4 ALLERGIES: Penicillins The patient's Home Medications are listed below: CONTINUE TAKING THE FOLLOWING MEDICATIONS: Nortriptyline HCl Oral 50 mg, at bedtime Ondansetron HCl Oral PriLOSEC Oral Sertraline HCl Oral 75 mg, at bedtime The source(s) of the original Home Medication information: Not obtained. The following Medications were given to the patient in the Emergency Department: IV NS IV Fluids bolus 0, then 1000 mL/hr, administered: 03/05/2017 1:04:00 AM Zofran [IVP] IVP 4 mg, administered: 03/05/2017 1:03:00 AM IV NS IV Fluids bolus 0, then 150 mL/hr, administered: 03/05/2017 3:31:00 AM The following Medications were prescribed to the patient: Zofran 4 mg: Take 1 orally every six hours as needed for nausea/vomiting. Dispense ten (10). No refills. Substitution is permissible. -- Heber Miller MD
== END 2017-03-05 03:50 | disposition home or self-care (01) ==
LOC: ED SRH 00:30
DX: R11.2 Nausea with vomiting, unspecified (principal); D72.829 Elevated white blood cell count, unspecified; F12.229 Cannabis dependence with intoxication, unspecified; I10 Essential (primary) hypertension; Z88.0 Allergy status to penicillin
CPT/HCPCS: 90004; 90098; 90100; 92235; 92530; 92760; 92761; 92762; 92763; 92764; 92765; 92766; 92767; 95059

== ENCOUNTER 2017-03-08 06:04 | Emergency (ER) | payer OTHER ==
--- NOTE | 2017-03-08 07:47 | ED ORDER SUMMARY ---
..... Patient: EUSEBIO SETHI OrderSheet [facility] VisitID: [id number] [address] [place] [address] 52y, M Registration Date/Time: 03/08/2017 ORDER SHEET Weight: 81.6 kg (stated) Allergies: Penicillins GENERAL ORDERS: CBC w Diff Urgent (06:03/08/2017 Ion Mccarty) (6:31 CBradburn R.N.) (6:33 JSanders R.N.) CMP Urgent (06:03/08/2017 Ion Mccarty) (6:31 ROSSYradburn R.N.) (6:33 JSanders R.N.) UA-Culture if indicated Urgent (:03/08/2017 Ion Mccarty) (Ack 6:42 Ricky) Amylase Urgent (:03/08/2017 Ion Mccarty) (6:31 ROSSYradburn R.N.) (6:33 JSanders R.N.) Lipase Urgent (:03/08/2017 Ion Mccarty) (6:31 ROSSYradburn R.N.) (6:33 JSanders R.N.) Urine Drug Screen Urgent (:03/08/2017 Ion Mccarty) (Ack 6:42 Ricky) MEDICATION ORDERS: Phenergan IV 25 mg (HIGH ALERT MEDICATION, NOW) (06:03/08/2017 Ion Mccarty) (Ack 6:32 ROSSYradburn R.N.) (6:44 CBaimeburn R.N.) Potassium Chloride PO 20 meq (NOW) (07:12 03/08/2017 Ino Mccarty) (Ack 7:26 MWinterer R.N.) (7:30 MWinterer R.N.) IV FLUIDS: IV NS : initial bolus none -, then 1000 mL/hr for X1 (NOW) (06:28 03/08/2017 Ion Mccarty) (Ack 6:32 CBradburn R.N.) (6:40 CBradburn R.N.) Famotidine IV 20 mg/50mL (NOW) (:03/08/2017 Ion cMcarty) (Ack 6:32 Jostin Gonzales) (7:03 Jostin Gonzales) IV NS : initial bolus none -, then 1000 mL/hr for X1 (NOW) (07:43 03/08/2017 Ion Mccarty) (7:47 Nickolas Gonzales) ORDER SHEET NOTES: [Electronically signed by Tata Jo R.N. (08:53 03/08/2017)] [Electronically signed by Jayy Cool Dr. (20:45 03/08/2017)] [Electronically locked/signed by Tata Jo R.N. (08:53 03/08/2017)]
--- NOTE | 2017-03-08 07:47 | ED NURSING NOTES ---
Clinical Report - Nurses [facility] [address] [place] [address] 03/08/2017 6:04 Patient: EUSEBIO SETHI TRIAGE Triage time 06:09. Acuity: LEVEL 2. Chief Complaint: ABDOMINAL PAIN, NAUSEA and VOMITING. --06:18 Suni Cristina R.N. 06:09 03/08/17. BP: 175/94 taken on the left arm, while lying. HR: 80. RR: 18. O2 saturation: 99%. Temp: 98.9 F (oral). Pain level now: 04/14. --06:18 Suni Cristina R.N. Weight: 81.6 kg stated. Height/Length: 68 inches Per Patient. BMI: 27.4. --06:15 Suni Cristina R.N. Medications Nortriptyline HCl Oral 50 mg, at bedtime. PriLOSEC Oral. Sertraline HCl Oral 75 mg, at bedtime. --06:17 Suni Cristina R.N. Zofran Oral (Tablet 4 mg) 1 tablet, as needed. --06:17 Suni Cristina R.N. Allergies Penicillins. --06:17 Suni Cristina R.N. History Arrived by private vehicle. Historian: patient. Accompanied by family. Primary physician (matthew). ( started throwing up early friday morning, seen 2 times this week not any better). Treatment [employer]: (zofran ODT). PAST MEDICAL HX: Immunizations: up-to-date. SOCIAL HX: Never smoker. History of drug use: marijuana. (2 days ago). No alcohol use. No infectious disease exposure. No known contact with a sick individual. ABUSE ASSESSMENT: No report of abuse. SELF HARM ASSESSMENT: A self harm assessment was performed. The patient answered "no" to the question "Have you recently felt down, depressed, or hopeless?", "Have you noticed less interest or pleasure in doing things?", "Do you have thoughts of harming or killing yourself?", "Are you here because you tried to hurt yourself?", "Have you ever tried to hurt yourself before today?", "Have you recently had thoughts about harming or killing others?" and "Do you have any dangerous items in your possession?". FALL RISK ASSESSMENT: Fall risk assessment completed. No fall risk identified. NUTRITIONAL RISK ASSESSMENT: The nutritional risk assessment revealed no deficiencies. FUNCTIONAL ASSESSMENT: Functional assessment: no impairments noted. LEARNING NEEDS ASSESSMENT: The learning needs assessment revealed no barriers. SKIN INTEGRITY ASSESSMENT: Skin integrity risk assessment completed. No skin integrity risk identified. --06:18 Suni Cristina R.N. PROBLEMS: Abnormal Test. Substance Abuse. Leukocytosis. Dehydration. Abdominal Pain. Bowel Perforation. Vomiting. Hypertension. --06:17 Suni Cristina R.N. ADDITIONAL SURGERIES: Appendectomy. Bowel Surgery. Colostomy. Hand. Neck Surgery. --06:17 Suni Cristina R.N. Interventions ID band on patient. --06:18 Suni Cristina R.N. PHYSICAL ASSESSMENT Ambulatory to room. GENERAL / NEURO / PSYCH: Alert. Oriented X 4. Appears in no acute distress. Appears anxious. HEENT: Mucous membranes are pink. RESPIRATORY: Respirations not labored. Breath sounds within normal limits. CVS: Normal sinus rhythm noted. Capillary refill less than 2 seconds. GI / : The patient has had constant nausea. Emesis noted. Has vomited several times. Abdomen soft. Abdominal tenderness in the epigastric area. Bowel sounds within normal limits. SKIN: Skin is warm and dry. --06:19 Suni Cristina R.N. GENERAL / NEURO / PSYCH: ( upon triage, pt denies any SI or HI ideations, however states is tired of going through this everyday.). --06:52 Suni Cristina R.N. NURSING PROGRESS NOTES Patient gowned. Reassurance given to the patient. Two patient identifiers checked. Call light placed in reach. Side rails up x 2. Bed placed in lowest position. Brakes of bed on. --06:20 Suni Cristina R.N. 06:20 03/08/2017 Site #1 started via IV in the right antecubital space with an 20g angiocath, with aseptic technique and good blood return; one attempt. Blood drawn: rainbow set. Labeled in the presence of the patient and sent to the lab. Saline lock flushed with 10 mL saline. --06:20 Suni Cristina R.N. Patient ready for evaluation- chart flagged. --06:20 Suni Cristina R.N. 06:40 03/08/2017 Started bag #1 1000 mL IV Fluids IV NS (Saline); bolus of 1000 mL wide open then over 1 hour(s) via site #1 --06:40 Suni Cristina R.N. 06:42 03/08/2017 PHENERGAN (Promethazine HCl) IVP 25 mg given over 3 minute(s) via site #1. Allergies verified and confirmed 5 rights. IV patency established. IV site checked: no pain, redness, or swelling. IV flushed thoroughly pre- and post-medication administration. IVP given by RN. --06:44 Suni Cristina R.N. GI / : The patient reports vomiting that is moderate in severity (200ml pink liquid). --06:46 Suni Cristina R.N. ( urinal placed at bedside, pt states unable to void at this time. educated pt on importance of getting urine sample pt acknowledged understanding and stated he would get it when he could.). --06:56 Suni Cristina R.N. 06:44 03/08/2017 Famotidine IVP 20 mg given over 30 minute(s) via site #1. Allergies verified and confirmed 5 rights. IV patency established. IV site checked: no pain, redness, or swelling. IV flushed thoroughly pre- and post-medication administration. IVP given by RN. --07:03 Suni Cristina R.N. 07:12 03/08/2017 IV Fluids IV NS Discontinued: bag #1 infused. Total amount infused: 1000 mL. IV patency established. IV site checked: no pain, redness, or swelling. IV flushed thoroughly. --07:12 Amrita August R.N. 07:30 03/08/2017 Potassium Chloride (Potassium Chloride ER) PO 20 meq given. Allergies verified and confirmed 5 rights. --07:30 Amrita August R.N. 07:30 03/08/17. BP: 116/80. RR: 12. O2 saturation: 98% on room air. --07:32 Amrita August R.N. 07:33 03/08/17. The patient reports no complaints and he is calm and resting quietly. Overall patient status- he states feels better. --07:33 Amrita August R.N. 07:47 03/08/2017 Started bag #1 1000 mL IV Fluids IV NS (Saline); at 1000 mL/hr over 1 hour(s) via site #1 via IV pump. Allergies verified and confirmed 5 rights. IV patency established. IV site checked: no pain, redness, or swelling. IV flushed thoroughly pre- and post-medication administration. --07:47 Tata Jo R.N. 07:47 03/08/17. BP: 115/70. HR: 65. RR: 16. O2 saturation: 98%. --07:48 Tata Jo R.N. Reassessment after fluids administered and medication administered. He reports no complaints and he is resting quietly. Overall patient status- he states feels better. --07:48 Tata Jo R.N. 08:47 03/08/2017 IV Fluids IV NS Discontinued: bag #2 infused upon discharge. Total amount infused: 1000 mL. IV patency established. IV site checked: no pain, redness, or swelling. IV flushed thoroughly. --08:47 Tata Jo R.N. DISPOSITION / DISCHARGE 08:47 03/08/17. BP: 115/76. HR: 72. RR: 16. O2 saturation: 98%. Temp: 98.6 F. Pain level now 0/10. --08:47 Tata Jo R.N. 08:47 03/08/2017 Site #1 removed upon discharge. Catheter intact. Manual pressure and bandaid applied. --08:47 Tata Jo R.N. 08:50. Departure time: 0850. Condition at departure: stable. No learning barriers present. Discharge instructions provided and reviewed with the patient. Reviewed medication(s) side effects, precautions, dosing and course information. Prescription(s) given to the patient. Reviewed referral to family practice for followup. Patient verbalized understanding. Written instructions provided in [place]. The patient was discharged home and accompanied by family. He left the Emergency Department ambulatory and via private vehicle. Family member driving. Medication list reviewed and validated. --08:53 Tata Jo R.N. Locked/Released at 03/08/2017 8:53 by Tata Jo R.N.
--- NOTE | 2017-03-08 07:47 | ED CLINICAL REPORT ---
Clinical Report - Physicians/Mid Levels [facility] [address] [place] [address] 03/08/2017 6:04 Patient: EUSEBIO SETHI Time Seen: 06:10; initial patient contact. Arrived- By private vehicle. Historian- patient. HISTORY OF PRESENT ILLNESS Chief Complaint: VOMITING. This started about 4 days ago and is still present. The patient has had nausea and vomiting. No diarrhea, black stools, bloody stools or abdominal pain. The illness is described as moderate. Similar symptoms previously: Many times. ( Pt has been counseled multiple times to stop smoking marijuana, still refuses.). Recent medical care: The patient was seen recently at this facility in the emergency department. ( 3rd visit in 1 week for the same issue. Per staff, pt became irate with staff at his last). REVIEW OF SYSTEMS No fever or headache. All systems otherwise negative, except as recorded above. PAST HISTORY Problems: Substance Abuse. Leukocytosis. Dehydration. Abdominal Pain. Bowel Perforation. Vomiting. Hypertension. Cannabis hyperemesis syndrome Additional Surgeries: Appendectomy. Bowel Surgery. Colostomy. Hand. Neck Surgery. SOCIAL HISTORY History of drug use: marijuana. ADDITIONAL NOTES The nursing notes have been reviewed. PHYSICAL EXAM Vital Signs: 03/08/2017 06:09 BP: 175/94. HR: 80. RR: 18. O2 saturation: 99%. Temp: 98.9 F. Pain level now: 7/10. Have been reviewed. Hypertensive. Heart rate normal. Respiratory rate normal. Temperature normal. Oxygen saturation normal. Appearance: Alert. Oriented X3. No acute distress. Eyes: Eyes normal inspection. ENT: Pharynx normal. The mucous membranes are not dry. CVS: Normal heart rate and rhythm. Heart sounds normal. Respiratory: No respiratory distress. Breath sounds normal. Abdomen: Soft and nontender. Bowel sounds normal. No mass. Femoral pulses equal. Skin: Skin warm and dry. Normal skin color. No rash. Normal skin turgor. Extremities: No lower extremity edema. Neuro: Oriented X 3. LABS, X-RAYS, AND EKG Laboratory Tests: CBC w Diff: (ROBERTO: 03/08/2017 06:14) ( MsgRcvd 03/08/2017 06:49) Final results Test Result Flag Units (Reference) WHITE BLOOD COUNT 17.4 H K/uL (4.5-11.5) RED BLOOD COUNT 5.10 M/uL (4.50-5.90) HEMOGLOBIN 15.2 gm/dL (13.5-17.5) HEMATOCRIT 45.6 % (41.0-53.0) MEAN CELL VOLUME 89 fL (80-100) MEAN CORPUSCULAR HGB 30 pg (26-34) MEAN CORPUSCULAR HGB CONC 33 g/dL (31-37) RED CELL DISTRIBUTION WIDTH 13.7 % (11.6-14.8) PLATELET COUNT 306 K/uL (150-400) NEUTROPHIL % 78.8 H % (50-75) LYMPH % 12.1 L % (25-40) MONO % 8.8 % (3-14) EOSINOPHIL % 0.1 % (0-4) BASOPHIL % 0.2 % (0-2) CMP: (ROBERTO: 03/08/2017 06:14) ( MsgRcvd 03/08/2017 07:05) Final results Test Result Flag Units (Reference) GLUCOSE 126 H mg/dL (70-110) BUN 29 H mg/dL (7-18) CREATININE 1.4 H mg/dL (0.6-1.3) Estimated GFR 57.01 mL/min Estimated GFR- >60 mL/min Note: Persistent reduction over 3 months in eGFR<60 mL/min/1.73 m2 defines CKD. Patients with eGFR values>=60 mL/min/1.73 m2 may also have CKD if evidence ofpersistent proteinuria. Additional information may be foundat www.kidney.org. SODIUM 140 mmol/L (136-145) POTASSIUM 3.2 L mmol/L (3.5-5.1) CHLORIDE 100 mmol/L (98-107) CARBON DIOXIDE 27 mmol/L (21-32) CALCIUM 9.5 mg/dL (8.5-10.1) TOTAL PROTEIN 8.8 H g/dL (6.4-8.2) ALBUMIN 4.4 g/dL (3.3-5.0) BILIRUBIN, TOTAL 1.1 H mg/dL (0.0-1.0) ALKALINE PHOSPHATASE 96 U/L (46-116) AST (SGOT) 89 H U/L (15-37) ALT (SGPT) 120 H U/L (12-78) LIPASE 96 U/L (73-393) AMYLASE 46 U/L (25-115) . PROGRESS AND PROCEDURES Course of Care: Essentially nl CT Abd/Pelvis on 03/05/17. WBC ahs been elevated since that time. Promethazine 25 mg IVP given. Famotidine 20mg IVPB given. Physical exam findings are improved. Symptoms much better. Disposition: Discharged home in good and improved condition. Condition: good. CLINICAL IMPRESSION Vomiting with nausea, dehydration and volume depletion. Not intractable or bilious. Hypokalemia INSTRUCTIONS Drink plenty of fluids. Your Current Medications: CONTINUE TAKING THE FOLLOWING MEDICATIONS: Nortriptyline HCl Oral : 50 mg at bedtime. PriLOSEC Oral. Sertraline HCl Oral : 75 mg at bedtime. Zofran Oral : Tablet 4 mg, 1 tablet, prn. Prescription Medications: Zantac 150 mg: take 1 orally every 12 hours. Dispense sixty (60). No refills. Substitution is permissible. Promethazine Tablets 25 mg: take 1 tablet orally every 6 hours as needed for nausea and vomiting. Dispense fifteen (15). No refill. Follow-up: Follow up with your doctor in about two days. Call for an appointment. Blood pressure screening was not performed during this visit because the patient has an active diagnosis of hypertension. (Electronically signed by Jayy Cool Dr. 03/08/2017 20:45)
--- NOTE | 2017-03-08 07:47 | ED ORDER SUMMARY ---
..... Patient: EUSEBIO SETHI OrderSheet [facility] VisitID: [id number] [address] [place] [address] 52y, M Registration Date/Time: 03/08/2017 ORDER SHEET Weight: 81.6 kg (stated) Allergies: Penicillins GENERAL ORDERS: CBC w Diff Urgent (06:03/08/2017 Ion Mccarty) (6:31 CBradburn R.N.) (6:33 JSanders R.N.) CMP Urgent (06:03/08/2017 Ion Mccarty) (6:31 ROSSYradburn R.N.) (6:33 JSanders R.N.) UA-Culture if indicated Urgent (:03/08/2017 Ion Mccarty) (Ack 6:42 Ricky) Amylase Urgent (:03/08/2017 Ion Mccarty) (6:31 ROSSYradburn R.N.) (6:33 JSanders R.N.) Lipase Urgent (:03/08/2017 Ion Mccarty) (6:31 ROSSYradburn R.N.) (6:33 JSanders R.N.) Urine Drug Screen Urgent (:03/08/2017 Ion Mccarty) (Ack 6:42 Ricky) MEDICATION ORDERS: Phenergan IV 25 mg (HIGH ALERT MEDICATION, NOW) (06:03/08/2017 Ion Mccarty) (Ack 6:32 ROSSYradburn R.N.) (6:44 CBaimeburn R.N.) Potassium Chloride PO 20 meq (NOW) (07:12 03/08/2017 Ion Mccarty) (Ack 7:26 MWinterer R.N.) (7:30 MWinterer R.N.) IV FLUIDS: IV NS : initial bolus none -, then 1000 mL/hr for X1 (NOW) (06:28 03/08/2017 Ion Mccarty) (Ack 6:32 CBradburn R.N.) (6:40 CBradburn R.N.) Famotidine IV 20 mg/50mL (NOW) (:03/08/2017 Ion Mccarty) (Ack 6:32 Jostin Gonzales) (7:03 Jostin Gonzales) IV NS : initial bolus none -, then 1000 mL/hr for X1 (NOW) (07:43 03/08/2017 Ion Mccarty) (7:47 Nickolas Gonzales) ORDER SHEET NOTES: [Electronically signed by Tata Jo R.N. (08:53 03/08/2017)] [Electronically signed by Jayy Cool Dr. (20:45 03/08/2017)] [Electronically locked/signed by Tata Jo R.N. (08:53 03/08/2017)]
--- NOTE | 2017-03-08 20:46 | ED MAR SUMMARY ---
..... Medication Administration Record [facility] [address] [place] [address] Patient: EUSEBIO SETHI Visit ID: [id number] 52y, M Weight: 81.6 kg Height/Length: 68 in BMI: 27.4 ALLERGIES: Penicillins Start 06:40 03/08/2017 Suni Cristina R.N., Stop 07:12 03/08/2017 Amrita August R.N. Medication Administered: IV NS (SALINE), Dose: IV Fluids over 1 hour(s), Bolus: 1000 mL wide open, Dispensed: 1000 mL bag, Site: #1 right AC. Medication Ordered: IV NS : initial bolus none -, then 1000 mL/hr for X1 (NOW). Given 06:42 03/08/2017 Suni Cristina R.N. Medication Administered: PHENERGAN [IVP] (PROMETHAZINE HCL), Dose: 25 mg IVP over 3 minute(s), Site: #1 right AC. Medication Ordered: Phenergan IV 25 mg (HIGH ALERT MEDICATION, NOW). Given 06:44 03/08/2017 Suni Cristina R.N. Medication Administered: FAMOTIDINE [IVP], Dose: 20 mg IVP over 30 minute(s), Site: #1 right AC. Medication Ordered: Famotidine IV 20 mg/50mL (NOW). Given 07:30 03/08/2017 Amrita August R.N. Medication Administered: POTASSIUM CHLORIDE [PO] (POTASSIUM CHLORIDE ER), Dose: 20 meq PO. Medication Ordered: Potassium Chloride PO 20 meq (NOW). Start 07:47 03/08/2017 Tata Jo R.N., Stop 08:47 03/08/2017 Tata Jo R.N. Medication Administered: IV NS (SALINE), Dose: IV Fluids over 1 hour(s), Rate: 1000 mL/hr, Dispensed: 1000 mL bag, Site: #1 right AC. Medication Ordered: IV NS : initial bolus none -, then 1000 mL/hr for X1 (NOW).
--- NOTE | 2017-03-08 20:46 | ED DISCHARGE INSTRUCTIONS ---
Patient: EUSEBIO SETHI General Instructions [facility] VisitID: [id number] [address] [place] [address] 52y, M Registration Date/Time: 03/08/2017 Vomiting with nausea, dehydration and volume depletion. Not intractable or bilious. Hypokalemia INSTRUCTIONS Drink plenty of fluids. Your Current Medications: CONTINUE TAKING THE FOLLOWING MEDICATIONS: Nortriptyline HCl Oral : 50 mg at bedtime. PriLOSEC Oral. Sertraline HCl Oral : 75 mg at bedtime. Zofran Oral : Tablet 4 mg, 1 tablet, prn. Prescription Medications: Zantac 150 mg: take 1 orally every 12 hours. Dispense sixty (60). No refills. Substitution is permissible. Promethazine Tablets 25 mg: take 1 tablet orally every 6 hours as needed for nausea and vomiting. Dispense fifteen (15). No refill. Follow-up: Follow up with your doctor in about two days. Call for an appointment. Blood pressure screening was not performed during this visit because the patient has an active diagnosis of hypertension. ADDITIONAL INFORMATION Vomiting [6Yr-Adult] Vomiting is a common symptom that may be due to different causes. These include gastroenteritis ("stomach flu"), food poisoning and gastritis. There are other more serious causes of vomiting which may be hard to diagnose early in the illness. Therefore, it is important to watch for the warning signs listed below. The main danger from repeated vomiting is dehydration. This is due to excess loss of water and minerals from the body. When this occurs, body fluids must be replaced. Home Care: If symptoms are severe, rest at home for the next 24 hours. You may use acetaminophen (Tylenol) or ibuprofen (Motrin, Advil) to control fever, unless another medicine was prescribed. [NOTE : If you have chronic liver or kidney disease or ever had a stomach ulcer or GI bleeding, talk with your doctor before using these medicines.] (Aspirin should never be used in anyone under 18 years of age who is ill with a fever. It may cause severe liver damage.) Avoid tobacco and alcohol use, which may worsen your symptoms. If medicines for vomiting were prescribed, take as directed. Once vomiting stops, then follow these guidelines: During The First 12-24 Hours follow the diet below: FRUIT JUICES: Apple, grape juice, clear fruit drinks, and electrolyte replacement drinks. BEVERAGES: Soft drinks without caffeine; mineral water (plain or flavored), decaffeinated tea and coffee. SOUPS: Clear broth, consomm and bouillon DESSERTS: Plain gelatin, popsicles and fruit juice bars. As you feel better, you may add 6-8 ounces of yogurt per day. During The Next 24 Hours you may add the following to the above: Hot cereal, plain toast, bread, rolls, crackers Plain noodles, rice, mashed potatoes, chicken noodle or rice soup Unsweetened canned fruit (avoid pineapple), bananas Limit caffeine and chocolate. No spices or seasonings except salt. During The Next 24 Hours Gradually resume a normal diet, as you feel better and your symptoms lessen. Follow Up with your doctor as advised if you are not improving over the next 2-3 days. Get Prompt Medical Attention if any of the following occur: Constant right-sided lower abdominal pain or increasing general abdominal pain Continued vomiting (unable to keep liquids down) for 24 hours Frequent diarrhea (more than 5 times a day); blood (red or black color) or mucus in diarrhea Reduced urine output or extreme thirst Weakness, dizziness or fainting Unusually drowsy or confused Fever of 100.4F (38C) oral or higher, not better with fever medication Yellow color of the eyes or skin Hypokalemia Hypokalemia means a low level of potassium in the blood. This most often occurs in patients who take diuretics (water pills). It can also occur due to severe vomiting or diarrhea. A mild case usually causes no symptoms. It is only found with blood testing. More severe potassium loss causes generalized weakness, muscle or abdominal cramping, heart palpitations (rapid or irregular heartbeats) and low blood pressure. Home Care: 1) Take any potassium supplements prescribed. 2) Eat foods rich in potassium. The highest amount is found in artichoke, baked potatoes, spinach, cantaloupe, honeydew melon, cod, halibut, salmon, and scallops. White, red, or ortega beans are also very good sources. A modest amount is found in orange juice, bananas, carrots, and tomato juice. 3) Certain types of diuretics (water pills), such as Lasix (furosemide), require that you take potassium supplements for as long as you take the diuretic pills. If you are taking a diuretic, discuss the need for potassium supplements with your doctor. Follow Up with your doctor for a repeat blood test within the next week or as advised by our staff. Get Prompt Medical Attention if any of the following occur: -- Increased weakness -- Feeling dizzy -- Irregular heartbeat, extra beats or very fast heart rate -- Fainting spell Ranitidine Hydrochloride Oral tablet What is this medicine? RANITIDINE (ra CAROLINE vanessa) is a type of antihistamine that blocks the release of stomach acid. It is used to treat stomach or intestinal ulcers. It can relieve ulcer pain and discomfort, and the heartburn from acid reflux. How should I use this medicine? Take this medicine by mouth with a glass of water. Follow the directions on the prescription label. If you only take this medicine once a day, take it at bedtime. Take your medicine at regular intervals. Do not take your medicine more often than directed. Do not stop taking except on your doctor's advice. Talk to your community health worker regarding the use of this medicine in children. Special care may be needed. What side effects may I notice from receiving this medicine? Side effects that you should report to your doctor or health medical care manager as soon as possible: agitation, nervousness, depression, hallucinations allergic reactions like skin rash, itching or hives, swelling of the face, lips, or tongue breast enlargement in both males and females breathing problems redness, blistering, peeling or loosening of the skin, including inside the mouth unusual bleeding or bruising unusually weak or tired vomiting yellowing of the skin or eyes Side effects that usually do not require medical attention (report to your doctor or health medical care manager if they continue or are bothersome): constipation or diarrhea dizziness headache nausea What may interact with this medicine? atazanavir delavirdine gefitinib glipizide ketoconazole midazolam procainamide propantheline triazolam warfarin What if I miss a dose? If you miss a dose, take it as soon as you can. If it is almost time for your next dose, take only that dose. Do not take double or extra doses. Where should I keep my medicine? Keep out of the reach of children. Store at room temperature between 15 and 30 degrees C (59 and 86 degrees F). Protect from light and moisture. Keep container tightly closed. Throw away any unused medicine after the expiration date. What should I tell my health care provider before I take this medicine? They need to know if you have any of these conditions: kidney disease liver disease porphyria an unusual or allergic reaction to ranitidine, other medicines, foods, dyes, or preservatives or trying to get breast-feeding What should I watch for while using this medicine? Tell your doctor or health medical care manager if your condition does not start to get better or gets worse. You may need to take this medicine for several days as prescribed before your symptoms get better. Finish the full course of tablets prescribed, even if you feel better. Do not smoke cigarettes or drink alcohol. These increase irritation in your stomach and can lengthen the time it will take for ulcers to heal. Cigarettes and alcohol can also make acid reflux or heartburn worse. If you get black, tarry stools or vomit up what looks like coffee grounds, call your doctor or health medical care manager at once. You may have a bleeding ulcer. Promethazine Hydrochloride Oral tablet What is this medicine? PROMETHAZINE (proe METH a zeen) is an antihistamine. It is used to treat allergic reactions and to treat or prevent nausea and vomiting from illness or motion sickness. It is also used to make you sleep before surgery, and to help treat pain or nausea after surgery. How should I use this medicine? Take this medicine by mouth with a glass of water. Follow the directions on the prescription label. Take your doses at regular intervals. Do not take your medicine more often than directed. Talk to your community health worker regarding the use of this medicine in children. Special care may be needed. This medicine should not be given to infants and children younger than 2 years old. What side effects may I notice from receiving this medicine? Side effects that you should report to your doctor or health medical care manager as soon as possible: blurred vision irregular heartbeat, palpitations or chest pain muscle or facial twitches pain or difficulty passing urine seizures skin rash slowed or shallow breathing unusual bleeding or bruising yellowing of the eyes or skin Side effects that usually do not require medical attention (report to your doctor or health medical care manager if they continue or are bothersome): headache nightmares, agitation, nervousness, excitability, not able to sleep (these are more likely in children) stuffy nose What may interact with this medicine? Do not take this medicine with any of the following medications: medicines called MAO Inhibitors like Nardil, Parnate, Marplan, Eldepryl other phenothiazines like trimethobenzamide This medicine may also interact with the following medications: barbiturates like phenobarbital bromocriptine certain antidepressants certain antihistamines used in allergy or cold medicines epinephrine levodopa medicines for sleep medicines for mental problems and psychotic disturbances medicines for movement abnormalities as in Parkinson's disease, or for gastrointestinal problems muscle relaxants prescription pain medicines What if I miss a dose? If you miss a dose, take it as soon as you can. If it is almost time for your next dose, take only that dose. Do not take double or extra doses. Where should I keep my medicine? Keep out of the reach of children. Store at room temperature, between 20 and 25 degrees C (68 and 77 degrees F). Protect from light. Throw away any unused medicine after the expiration date. What should I tell my health care provider before I take this medicine? They need to know if you have any of these conditions: glaucoma high blood pressure or heart disease kidney disease liver disease lung or breathing disease, like asthma prostate trouble pain or difficulty passing urine seizures an unusual or allergic reaction to promethazine or phenothiazines, other medicines, foods, dyes, or preservatives or trying to get breast-feeding What should I watch for while using this medicine? Tell your doctor or health medical care manager if your symptoms do not start to get better in 1 to 2 days. You may get drowsy or dizzy. Do not drive, use machinery, or do anything that needs mental alertness until you know how this medicine affects you. To reduce the risk of dizzy or fainting spells, do not stand or sit up quickly, especially if you are an older patient. Alcohol may increase dizziness and drowsiness. Avoid alcoholic drinks. Your mouth may get dry. Chewing sugarless gum or sucking hard candy, and drinking plenty of water may help. Contact your doctor if the problem does not go away or is severe. This medicine may cause dry eyes and blurred vision. If you wear contact lenses you may feel some discomfort. Lubricating drops may help. See your eye doctor if the problem does not go away or is severe. This medicine can make you more sensitive to the sun. Keep out of the sun. If you cannot avoid being in the sun, wear protective clothing and use sunscreen. Do not use sun lamps or tanning beds/booths. If you are diabetic, check your blood-sugar levels regularly. You have been given the following additional information: Vomiting (6Y-Adult) Hypokalemia Ranitidine Hydrochloride Oral tablet Promethazine Hydrochloride Oral tablet (Electronically signed by Jayy Cool Dr. 03/08/2017 20:45)
--- NOTE | 2017-03-08 20:46 | ED MED RECONCILIATION SUMMARY ---
Patient: EUSEBIO SETHI Medication Reconciliation Report [facility] VisitID: [id number] [address] [place] [address] 52y, M Registration Date/Time: 03/08/2017 Weight: 81.6 kg Height/Length: 68 in. BMI: 27.4 ALLERGIES: Penicillins The patient's Home Medications are listed below: CONTINUE TAKING THE FOLLOWING MEDICATIONS: Nortriptyline HCl Oral 50 mg, at bedtime PriLOSEC Oral Sertraline HCl Oral 75 mg, at bedtime Zofran Oral (4 mg) 1 tablet The source(s) of the original Home Medication information: Not obtained. The following Medications were given to the patient in the Emergency Department: IV NS IV Fluids bolus 1000 mL wide open, administered: 03/08/2017 6:40:00 AM PHENERGAN [IVP] IVP 25 mg, administered: 03/08/2017 6:42:00 AM Famotidine [IVP] IVP 20 mg, administered: 03/08/2017 6:44:00 AM Potassium Chloride [PO] PO 20 meq, administered: 03/08/2017 7:30:00 AM IV NS IV Fluids bolus 0, then 1000 mL/hr, administered: 03/08/2017 7:47:00 AM The following Medications were prescribed to the patient: Zantac 150 mg: take 1 orally every 12 hours. Dispense sixty (60). No refills. Substitution is permissible. -- Jayy Cool Dr. Promethazine Tablets 25 mg: take 1 tablet orally every 6 hours as needed for nausea and vomiting. Dispense fifteen (15). No refill. -- Jayy Cool Dr.
--- NOTE | 2017-03-08 20:46 | ED MED RECONCILIATION SUMMARY ---
Patient: EUSEBIO SETHI Medication Reconciliation Report [facility] VisitID: [id number] [address] [place] [address] 52y, M Registration Date/Time: 03/08/2017 Weight: 81.6 kg Height/Length: 68 in. BMI: 27.4 ALLERGIES: Penicillins The patient's Home Medications are listed below: CONTINUE TAKING THE FOLLOWING MEDICATIONS: Nortriptyline HCl Oral 50 mg, at bedtime PriLOSEC Oral Sertraline HCl Oral 75 mg, at bedtime Zofran Oral (4 mg) 1 tablet The source(s) of the original Home Medication information: Not obtained. The following Medications were given to the patient in the Emergency Department: IV NS IV Fluids bolus 1000 mL wide open, administered: 03/08/2017 6:40:00 AM PHENERGAN [IVP] IVP 25 mg, administered: 03/08/2017 6:42:00 AM Famotidine [IVP] IVP 20 mg, administered: 03/08/2017 6:44:00 AM Potassium Chloride [PO] PO 20 meq, administered: 03/08/2017 7:30:00 AM IV NS IV Fluids bolus 0, then 1000 mL/hr, administered: 03/08/2017 7:47:00 AM The following Medications were prescribed to the patient: Zantac 150 mg: take 1 orally every 12 hours. Dispense sixty (60). No refills. Substitution is permissible. -- Jayy Cool Dr. Promethazine Tablets 25 mg: take 1 tablet orally every 6 hours as needed for nausea and vomiting. Dispense fifteen (15). No refill. -- Jayy Cool Dr.
--- NOTE | 2017-03-08 20:46 | ED MAR SUMMARY ---
..... Medication Administration Record [facility] [address] [place] [place] [address] Patient: EUSEBIO SETHI Visit ID: [id number] 52y, M Weight: 81.6 kg Height/Length: 68 in BMI: 27.4 ALLERGIES: Penicillins Start 06:40 03/08/2017 Suni Cristina R.N., Stop 07:12 03/08/2017 Amrita August R.N. Medication Administered: IV NS (SALINE), Dose: IV Fluids over 1 hour(s), Bolus: 1000 mL wide open, Dispensed: 1000 mL bag, Site: #1 right AC. Medication Ordered: IV NS : initial bolus none -, then 1000 mL/hr for X1 (NOW). Given 06:42 03/08/2017 Suni Cristina R.N. Medication Administered: PHENERGAN [IVP] (PROMETHAZINE HCL), Dose: 25 mg IVP over 3 minute(s), Site: #1 right AC. Medication Ordered: Phenergan IV 25 mg (HIGH ALERT MEDICATION, NOW). Given 06:44 03/08/2017 Suni Cristina R.N. Medication Administered: FAMOTIDINE [IVP], Dose: 20 mg IVP over 30 minute(s), Site: #1 right AC. Medication Ordered: Famotidine IV 20 mg/50mL (NOW). Given 07:30 03/08/2017 Amrita August R.N. Medication Administered: POTASSIUM CHLORIDE [PO] (POTASSIUM CHLORIDE ER), Dose: 20 meq PO. Medication Ordered: Potassium Chloride PO 20 meq (NOW). Start 07:47 03/08/2017 Tata Jo R.N., Stop 08:47 03/08/2017 Tata Jo R.N. Medication Administered: IV NS (SALINE), Dose: IV Fluids over 1 hour(s), Rate: 1000 mL/hr, Dispensed: 1000 mL bag, Site: #1 right AC. Medication Ordered: IV NS : initial bolus none -, then 1000 mL/hr for X1 (NOW).
== END 2017-03-08 08:50 | disposition home or self-care (01) ==
LOC: ED SRH 06:04
DX: R11.2 Nausea with vomiting, unspecified (principal); E86.0 Dehydration; E87.6 Hypokalemia; I10 Essential (primary) hypertension
CPT/HCPCS: 90100; 92235; 92530; 95059